=== PATIENT | female | born 1995 | race Caucasian/White ===

== ENCOUNTER 2017-02-20 05:30 | Inpatient (IN) | payer OTHER ==
[2017-02-20] MEDS ORDERED: Ondansetron INJ* 2 MG/ML VIAL IV ONE ×2 (07:30→10:10)
[2017-02-20] MEDS ORDERED: Sucralfate TAB* 1 GM PO ONE (07:30)
[2017-02-20] MEDS ORDERED: NS 0.9% 1000 ML* 1,000 ML IV ONE ×2 (07:30→11:27)
[2017-02-20] MEDS ORDERED: Pantoprazole IV* 40 MG IV ONE (07:30)
[2017-02-20 08:06] LABS: Hematocrit 49 % (35-47); Hemoglobin 16.6 g/dl (12.0-16.0); Mean Corpuscular HGB Conc 34 g/dl (31-36); Mean Corpuscular Hemoglobin 30 pg (27-31); Mean Corpuscular Volume 89 fL (80-97); Mean Platelet Volume 9 um3 (7.4-10.4); Red Blood Count 5.56 10^6/ul (4.0-5.4); Red Cell Distribution Width 16 % (10.5-15); White Blood Count 12.5 10^3/ul (3.5-10.8)
[2017-02-20 08:21] LABS: ALT 273 U/L (7-52); AST 295 U/L (13-39); Albumin 4.8 g/dL (3.2-5.2); Alkaline Phosphatase 123 U/L (34-104); Anion Gap 6 mmol/L (2-11); BUN/Creatinine Ratio 11.6 (8-20); Blood Urea Nitrogen 10 mg/dL (6-24); C Reactive Protein 10.18 mg/L (< 5.00); CO2 Carbon Dioxide 30 mmol/L (22-32); Calcium 9.6 mg/dL (8.6-10.3); Chloride 102 mmol/L (101-111); EGFR African American 109.3 (>60); Globulin 2.8 g/dL (2-4); Glucose 135 mg/dL (70-100); Lipase 17 U/L (11.0-82.0); Potassium 4.5 mmol/L (3.5-5.0); Sodium 138 mmol/L (133-145); Total Protein 7.6 g/dL (6.4-8.9)
--- NOTE | 2017-02-20 09:40 | RAD ---
HISTORY: Right upper quadrant pain. COMPARISONS: None TECHNIQUE: Multiple transverse and longitudinal ultrasound images were obtained of the right upper quadrant. FINDINGS: LIVER: The liver is normal in dimensions and echogenicity. Normal hepatic and portal venous blood flow is duplicated with color flow imaging. There is no gross intrahepatic biliary duct dilatation. GALLBLADDER AND EXTRAHEPATIC BILIARY DUCT: Within the gallbladder lumen there are multiple echogenic, some shadowing, foci. Some of these foci adherent to the nondependent portion of the gallbladder exhibiting the "ball on a wall" sign. The wall the gallbladder is not pathologically thickened measuring up to 3 mm. There is no definite pericholecystic fluid. The common bile duct measures a maximum diameter of 7 mm. There is the appearance of echogenic debris in the common bile duct. PANCREAS: The portions of the pancreas not obscured by bowel gas are normal in appearance. RIGHT KIDNEY: The right kidney is normal in size, morphology and echogenicity. AORTA AND IVC: The visualized portions are normal in appearance and not pathologically dilated. IMPRESSION: SONOGRAPHIC FINDINGS ARE COMPATIBLE WITH NONOBSTRUCTIVE CHOLELITHIASIS AND GALLBLADDER SLUDGE POSSIBLY WITH THE ADDITION OF ADENOMYOMATOSIS. THERE IS ECHOGENIC DEBRIS IN THE MILDLY DILATED COMMON BILE DUCT. IF THERE IS STRONG CLINICAL SUSPICION FOR OBSTRUCTIVE CHOLECYSTITIS FURTHER CHARACTERIZATION COULD BE MADE WITH A HIDA SCAN.
[2017-02-20] MEDS ORDERED: HYDROmorphone* 1 MG/ML 1 ML CARPUJECT IV ONE (10:10)
[2017-02-20 10:33] LABS: Urine Bacteria Absent (Absent); Urine Bilirubin Negative (Negative); Urine Glucose Negative (Negative); Urine Nitrite Negative (Negative)
[2017-02-20] MEDS ORDERED: Ondansetron INJ* 2 MG/ML VIAL IV PRN (11:27)
[2017-02-20] MEDS ORDERED: Acetaminophen TAB* 325 MG PO PRN (11:27)
--- NOTE | 2017-02-20 13:23 | ED ---
Mann Nicolas Nikita, scribed for Sulaiman Medrano MD on 02/20/17 at 0736 . Abdominal Pain/Female - HPI Summary HPI Summary: This patient is a 21 year old F presenting to ED with a chief complaint of RUQ abdominal pain since 1800 last night. The pt reports the pain kept her up all night until this morning. The pain went away for a bit, but now is back. The CC is described as intermittent contractions, waves of pain at worse, then dull pain at best (waxing and waning). The patient rates the pain 8/10 in severity. Symptoms aggravated by lying supine. Symptoms alleviated by nothing. Patient reports nausea when the pain is at its worst. Patient denies bowel symptoms, vomiting, and diarrhea. - History of Current Complaint Chief Complaint: EDAbdPain Stated Complaint: ABD PAIN Time Seen by Provider: 02/20/17 07:20 Hx Obtained From: Patient Onset/Duration: Sudden Onset - 1800 last night, Lasting Days, Still Present Timing: Intermittent Episode Lasting - waxing and waning Severity Initially: Severe Severity Currently: Severe Pain Intensity: 8 Pain Scale Used: 0-10 Numeric Location: Discrete At: RUQ Radiates: No Character: Sharp, Dull, Other: - Contractions and waves of pain Aggravating Factor(s): Other: - Lying supine Alleviating Factor(s): Nothing Associated Signs and Symptoms: Positive: Other: - Patient reports nausea when the pain is at its worst. Patient denies bowel symptoms, vomiting, and diarrhea. Allergies/Adverse Reactions: Allergies Allergy/AdvReac Type Severity Reaction Status Date / Time Amoxicillin Allergy Hives Verified 02/20/17 05:34 Azithromycin [From Zithromax] Allergy Hives Verified 02/20/17 05:34 Sulfamethoxazole Allergy Hives Verified 02/20/17 05:34 w/Trimethoprim [From Bactrim] Home Medications: Home Medications ALPRAZolam TAB* [Xanax TAB*] 0.5 mg PO DAILY PRN 02/20/17 [History Confirmed 02/28] Sertraline* [Zoloft*] 100 mg PO DAILY 02/20/17 [History Confirmed 02/20/17] PMH/Surg Hx/FS Hx/Imm Hx Endocrine/Hematology History: Denies: Hx Diabetes Cardiovascular History: Denies: Hx Coronary Artery Disease, Hx Hypertension - Immunization History Date of Tetanus Vaccine: utd Date of Influenza Vaccine: none Infectious Disease History: No Infectious Disease History: Denies: Traveled Outside the [place] in Last 30 Days - Family History Known Family History: Positive: Diabetes - Social History Alcohol Use: Occasionally Substance Use Type: Reports: Marijuana Substance Use Comment - Amount & Last Used: last month Smoking Status (MU): Light Every Day Tobacco Smoker Review of Systems Negative: Fever Positive: Abdominal Pain - RUQ, Nausea, Other - NEGATIVE: bowel symptoms. Negative: Vomiting, Diarrhea All Other Systems Reviewed And Are Negative: Yes Physical Exam Triage Information Reviewed: Yes Vital Signs On Initial Exam: Initial Vitals Temp Pulse Resp BP Pulse Ox 96.2 F 88 18 116/83 100 02/20/17 05:35 02/20/17 05:35 02/20/17 05:35 02/20/17 05:35 02/20/17 05:35 Vital Signs Reviewed: Yes Appearance: Positive: Well-Appearing, No Pain Distress Skin: Positive: Warm, Skin Color Reflects Adequate Perfusion, Dry Head/Face: Positive: Normal Head/Face Inspection Eyes: Positive: Normal ENT: Positive: Normal ENT inspection Neck: Positive: Supple, Nontender Respiratory/Lung Sounds: Positive: Clear to Auscultation, Breath Sounds Present Cardiovascular: Positive: RRR Abdomen Description: Positive: Other: - Epigastric and RUQ tenderness Bowel Sounds: Positive: Present Musculoskeletal: Positive: Normal Neurological: Positive: Normal, Sensory/Motor Intact, Alert, Oriented to Person Place, Time, CN Intact II-III Psychiatric: Positive: Affect/Mood Appropriate - Denise Coma Scale Coma Scale Total: 15 Diagnostics - Vital Signs Vital Signs Temp Pulse Resp BP Pulse Ox 02/20/17 05:35 96.2 F 88 18 116/83 100 - Laboratory Lab Results: Lab Results 02/20/17 02/20/17 02/20/17 Range/Units 07:50 07:50 07:50 WBC 12.5 H (3.5-10.8) 10^3/ul RBC 5.56 H (4.0-5.4) 10^6/ul Hgb 16.6 H (12.0-16.0) g/dl Hct 49 H (35-47) % MCV 89 (80-97) fL MCH 30 (27-31) pg MCHC 34 (31-36) g/dl RDW 16 H (10.5-15) % Plt Count 222 (150-450) 10^3/ul MPV 9 (7.4-10.4) um3 Neut % (Auto) 75.9 (38-83) % Lymph % (Auto) 15.8 L (25-47) % Vilas % (Auto) 7.6 (1-9) % Eos % (Auto) 0.6 (0-6) % Baso % (Auto) 0.1 (0-2) % Absolute Neuts (auto) 9.5 H (1.5-7.7) 10^3/ul Absolute Lymphs (auto) 2.0 (1.0-4.8) 10^3/ul Absolute Monos (auto) 0.9 H (0-0.8) 10^3/ul Absolute Eos (auto) 0.1 (0-0.6) 10^3/ul Absolute Basos (auto) 0 (0-0.2) 10^3/ul Absolute Nucleated RBC 0 10^3/ul Nucleated RBC % 0 Sodium 138 (133-145) mmol/L Potassium 4.5 (3.5-5.0) mmol/L Chloride 102 (101-111) mmol/L Carbon Dioxide 30 (22-32) mmol/L Anion Gap 6 (2-11) mmol/L BUN 10 (6-24) mg/dL Creatinine 0.86 (0.51-0.95) mg/dL Est GFR ( Amer) 109.3 (>60) Est GFR (Non-Af Amer) 85.0 (>60) BUN/Creatinine Ratio 11.6 (8-20) Glucose 135 H (70-100) mg/dL Lactic Acid 1.3 (0.5-2.0) mmol/L Calcium 9.6 (8.6-10.3) mg/dL Total Bilirubin 1.00 (0.2-1.0) mg/dL AST 295 H (13-39) U/L ALT 273 H (7-52) U/L Alkaline Phosphatase 123 H (34-104) U/L C-Reactive Protein 10.18 H (< 5.00) mg/L Total Protein 7.6 (6.4-8.9) g/dL Albumin 4.8 (3.2-5.2) g/dL Globulin 2.8 (2-4) g/dL Albumin/Globulin Ratio 1.7 (1-3) Lipase 17 (11.0-82.0) U/L Beta HCG, Quant < 0.60 mIU/mL Urine Color Urine Appearance Urine pH (5-9) Ur Specific [place] (1.010-1.030) Urine Protein (Negative) Urine Ketones (Negative) Urine Blood (Negative) Urine Nitrate (Negative) Urine Bilirubin (Negative) Urine Urobilinogen (Negative) Ur Leukocyte Esterase (Negative) Urine WBC (Auto) (Absent) Urine RBC (Auto) (Absent) Ur Squamous Epith Cells (Absent) Amorphous Crystals (Absent) Urine Bacteria (Absent) Urine Glucose (Negative) 02/20/17 Range/Units 09:57 WBC (3.5-10.8) 10^3/ul RBC (4.0-5.4) 10^6/ul Hgb (12.0-16.0) g/dl Hct (35-47) % MCV (80-97) fL MCH (27-31) pg MCHC (31-36) g/dl RDW (10.5-15) % Plt Count (150-450) 10^3/ul MPV (7.4-10.4) um3 Neut % (Auto) (38-83) % Lymph % (Auto) (25-47) % Vilas % (Auto) (1-9) % Eos % (Auto) (0-6) % Baso % (Auto) (0-2) % Absolute Neuts (auto) (1.5-7.7) 10^3/ul Absolute Lymphs (auto) (1.0-4.8) 10^3/ul Absolute Monos (auto) (0-0.8) 10^3/ul Absolute Eos (auto) (0-0.6) 10^3/ul Absolute Basos (auto) (0-0.2) 10^3/ul Absolute Nucleated RBC 10^3/ul Nucleated RBC % Sodium (133-145) mmol/L Potassium (3.5-5.0) mmol/L Chloride (101-111) mmol/L Carbon Dioxide (22-32) mmol/L Anion Gap (2-11) mmol/L BUN (6-24) mg/dL Creatinine (0.51-0.95) mg/dL Est GFR ( Amer) (>60) Est GFR (Non-Af Amer) (>60) BUN/Creatinine Ratio (8-20) Glucose (70-100) mg/dL Lactic Acid (0.5-2.0) mmol/L Calcium (8.6-10.3) mg/dL Total Bilirubin (0.2-1.0) mg/dL AST (13-39) U/L ALT (7-52) U/L Alkaline Phosphatase (34-104) U/L C-Reactive Protein (< 5.00) mg/L Total Protein (6.4-8.9) g/dL Albumin (3.2-5.2) g/dL Globulin (2-4) g/dL Albumin/Globulin Ratio (1-3) Lipase (11.0-82.0) U/L Beta HCG, Quant mIU/mL Urine Color Ava Urine Appearance Cloudy Urine pH 7.0 (5-9) Ur Specific [place] 1.023 (1.010-1.030) Urine Protein 1+(30 mg/dl) H (Negative) Urine Ketones Negative (Negative) Urine Blood Negative (Negative) Urine Nitrate Negative (Negative) Urine Bilirubin Negative (Negative) Urine Urobilinogen Negative (Negative) Ur Leukocyte Esterase 3+ H (Negative) Urine WBC (Auto) 3+(>20/hpf) H (Absent) Urine RBC (Auto) Absent (Absent) Ur Squamous Epith Cells Present H (Absent) Amorphous Crystals Present H (Absent) Urine Bacteria Absent (Absent) Urine Glucose Negative (Negative) Result Diagrams: 02/20/17 07:50 02/20/17 07:50 Lab Statement: Any lab studies that have been ordered have been reviewed, and results considered in the medical decision making process. - Ultrasound No standard instances Ultrasound Interpretation Completed By: Radiologist - Gallbladder US: SONOGRAPHIC FINDINGS ARE COMPATIBLE WITH NONOBSTRUCTIVE CHOLELITHIASIS AND GALLBLADDER SLUDGE POSSIBLY WITH THE ADDITION OF ADENOMYOMATOSIS. THERE IS ECHOGENIC DEBRIS IN THE MILDLY DILATED COMMON BILE DUCT. IF THERE IS STRONG CLINICAL SUSPICION FOR OBSTRUCTIVE CHOLECYSTITIS FURTHER CHARACTERIZATION COULD BE MADE WITH A HIDA SCAN. ED physician has reviewed this radiology report and agrees. Re-Evaluation - Re-Evaluation First Eval Re-Evaluation Time: 10:08 Comment: Discussed with pt who agrees to admission. Pt asked for pain medication. Abdominal Pain Fem Course/Dx - Course Course Of Treatment: Mr. Thomas presented with epigastric and RUQ pain. He was found to have a slight leukocytosis and elevation of his transaminases. An U/S of his gallbladder revealed sludge but no cholecystitis. Dr. Sanderson was consulted and recommended admission for further W/U. - Diagnoses Provider Diagnoses: Abdominal pain - Provider Notifications Discussed Care Of Patient With: Yomi Mora Time Discussed With Above Provider: 10:03 Instructed by Provider To: Other - Discussed with Dr. Mora about pt who recommends admission to hospitalist. Discussed with Dr. Walls at 1046 who accepts pt for admission. Discharge - Discharge Plan Condition: Stable Disposition: ADMITTED TO [facility] The documentation as recorded by the Mann hwang Nikita accurately reflects the service I personally performed and the decisions made by , Sulaiman Medrano MD.
[2017-02-20] MEDS: Morphine INJ* 2 MG/ML 1 ML CARPUJECT IV PRN ×3 (14:20→23:09)
[2017-02-20] MEDS: NS 0.9% 1000 ML* 1,000 ML IV SCH (14:21)
--- NOTE | 2017-02-20 15:07 | HP ---
CC: [facility]; Angela Valladares from [place]; Dr. Mejia; Dr. Mora * HISTORY AND PHYSICAL: DATE OF ADMISSION: 02/20/17 PRIMARY CARE PROVIDER: [facility] and Angela Valladares from [place]. CONSULTING CARPENTRY INSTRUCTOR: Dr. Mora. CONSULTING SURGEON: Dr. Mejia ATTENDING PHYSICIAN: Dr. Walls * (DICTATED BY PAYTON RAY NP) CHIEF COMPLAINT: Abdominal discomfort. HISTORY OF PRESENT ILLNESS: Ms. Thomas is a 21-year-old female transitioning to becoming male prefers to be called [facility]. The patient presented today stating that he had a significant amount of epigastric discomfort. He said he had this pain before. He states about every 3 months, he will have an episode and he gets epigastric pain, felt like a band that comes in waves across the top part of his stomach that usually gets better on its own. He states he does not believe it is associated with food. The pain does though happen sometimes after eating and he said he did try cutting out fatty foods, but this did not seem to alleviate the discomfort. He comes in today because around 6 in the morning on Wednesday, he woke up having epigastric discomfort, felt nauseated. It was his typical pain that he was accustomed to it. That went away. By 6 at night, he was feeling much better and he decided to have a gyro. After eating that, about an hour and half after he had pain again in the epigastric area in right upper quadrant described as sharp, stabbing, tearing pain that was coming and going in waves, but just would not go away. He did not sleep at all last night, so he decided to come into the ER to be evaluated because the pain was not getting any better. The patient denied having any fevers on chills. He did state that he felt nauseous once, no vomiting. He denied any diarrhea and no dysuria or frequency. He states that the pain feels better now. He came in and was evaluated. He denied having any chest pain. He states he is pretty active. He can walk up a flight of stairs with no chest pain. He was concerned because the pain was not getting any better, came into the ED and was evaluated here. It was noted that the LFTs were elevated it was noted that he had on ultrasound biliary sludge and cholelithiasis. Because of this we were asked to evaluate for admission. PAST MEDICAL HISTORY: Significant for; 1. Anxiety. 2. Depression. PAST SURGICAL HISTORY: Denied. HOME MEDICATIONS: According to his recall include; 1. Zoloft 100 mg p.o. daily. 2. Xanax 0.25 mg p.o. daily as needed for anxiety. 3. Testosterone injection 1 injection weekly. ALLERGIES TO MEDICATIONS: Include; 1. AMOXICILLIN. 2. AZITHROMYCIN. 3. BACTRIM. FAMILY HISTORY: He does state that his mother has history of gallbladder disease. She had her gallbladder out at around 22. Also, father has a history of prediabetes. SOCIAL HISTORY: He rarely drinks alcohol. The patient does occasionally smoke cigarettes 1 to 2 times a week and occasionally smokes marijuana. 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 REVIEW OF SYSTEMS: There is no documented fever. Denied any significant weight change. No double vision. No ear discharge. No rhinorrhea. No sore throat. No thyroid enlargement. Denied having any chest pain. No orthopnea or nocturnal dyspnea. There is abdominal pain from HPI. There was 1 episode of nausea, but no vomiting. No dysuria. No frequency. No seizure. No loss of consciousness or pruritus. No skin ulcerations. Review of 14 systems completed, all others negative. PHYSICAL EXAMINATION GENERAL: At this time, Mr. Thomas is a 21-year-old female becoming male patient who is sitting in the ED stretcher, does not appear to be in any acute distress. VITAL SIGNS: Blood pressure 101/60, pulse 76, respirations 18, O2 sat 98% on room air, temperature 96.2. HEENT: Head is atraumatic and normocephalic. Eyes: EOMs are intact. Sclerae anicteric and not pale. Throat: Oral mucosa appeared to be moist. No oropharyngeal erythema. NECK: Supple. LUNGS: Clear to auscultation bilaterally. No wheezes, rales, or rhonchi. HEART: Sounds S1 and S2, regular rate and rhythm. No murmurs, rubs, or gallops. ABDOMEN: Soft, flat. There was tenderness in the right upper quadrant. EXTREMITIES: Pulses 2+ throughout, able to move all 4 extremities with 5/5 strength. NEUROLOGIC: The patient is awake, alert, oriented x3. Tongue is midline. Commutator Assembler were equal. No gross focal deficits. SKIN: Grossly intact. LABORATORY DATA: The labs today revealed a WBC of 12.5, RBC of 5.56, hemoglobin of 16.6, hematocrit of 49, and platelet count of 222. Sodium is 138 , potassium is 4.5, chloride of 102, bicarbonate 30, BUN 10, creatinine 0.86, glucose 135, lactate 1.3, calcium 9.6, total bilirubin 1, AST 295, ALT 275, alk phos 123, CRP at 10. Lipase is negative. Beta hCG was negative. Urine showed 3 + leukocyte esterase, 3+ WBC, 1+ protein. There was a gallbladder ultrasound obtained, impression: Sonographic findings compatible with nonobstructive cholelithiasis, gallbladder sludge, possibility with addition of adenomyomatosis. There is echogenic debris in the mildly dilated common bile duct. If there is strong clinical suspicion for obstructive cholelithiasis further characteristics could be made with a HIDA scan. Old medical records were reviewed. ASSESSMENT AND PLAN: Mr. Thomas is a 21-year-old again female becoming male patient coming into the ER today with complaints of abdominal discomfort, on evaluation found to have elevated LFTs. In addition to this, was found to have ultrasound consistent with cholelithiasis. He will be admitted under observation status for: 1. Biliary colic. At this point, he does not appear to be obstructed as his bilirubin is normal and the amylase is normal; however, that could change tomorrow. I am concerned that he may have passed a stone, in light of the pain that he was experiencing. The plan is to get GI and Surgery involved as the patient may need a cholecystectomy. We will have GI evaluate. We may need to do an MRCP, but again I will defer that to GI's recommendation. He also may need an ERCP, but again we will repeat labs in the morning. The patient was placed on clear liquid diet, IV fluids. I am holding on antibiotic. I know if he had a little bit of white count that could just be a leukemoid reaction. He does appear to be pretty dehydrated. If he does spike a fever, I will put him on antibiotics, bit at this point there were no signs of cholecystitis on the ultrasound. 2. History of depression and anxiety. Continue meds as prescribed. 3. Hormonal therapy. Again, I will hold off the testosterone now until the acute illness is over. 4. DVT prophylaxis. He will be placed on SCDs. 5. Code status. Full code. 6. Fluids, electrolytes, and nutrition. Clear liquid diet. TIME SPENT: Time spent on the admission was 60 minutes, greater than half the time was spent [id number] with the patient obtaining my history of physical; the other half time was spent going over the plan of care with the patient and implementing plan of care. I did discuss the plan of care with my attending, Dr. Walls. PAYTON RAY, LEAD TECHNICAL ARCHITECT [id number]/[facility] #: [id number] EDIS
[2017-02-20] MEDS ORDERED: Influenza VAC *QUAD* 2017-18* 0.5 ML SYRINGE IM ONE (17:00)
--- NOTE | 2017-02-20 17:37 | CONS ---
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 HISTORY: This is a 21-year-old transgender (female to male, on one year of weekly testosterone). The patient comes in complaining of upper abdominal pain. Abdominal pain began in earnest over the last few days and he presented to the ER this morning, was found to have a slightly elevated white count and elevated LFTs. She recalls abdominal pains at wide intervals in high school and having a gallbladder ultrasound that was reportedly negative, ordered by her family physician. Over the last couple of weeks, there has been increasing number of these pains, usually brief, but yesterday it lasted longer and just would not go away. There has been no vomiting, fever or change in her urine. PAST MEDICAL HISTORY: Testosterone injections weekly, beginning a year ago, obtained at [facility] and self administered. No surgery has been done consistent with this plan. MEDICATIONS: Testosterone, Sertraline 100, Alprazolam 0.5. SOCIAL HISTORY: She (still registered as such through admissions) is from [place], a sophomore at [employer], studying film. Her mother works with the [employer], in logistics, and is driving up today to be with her. Her father is a municipal coke crane operator. REVIEW OF SYSTEMS: No history of syncope, seizure, arrhythmias, heart abnormalities, hemoptysis, TB, hepatitis, jaundice, renal stones or bowel habit abnormalities. PHYSICAL EXAMINATION: He is a substantially overweight young, phenotypically male patient, with some fry growth, some breast development, and extensive abdominal wall hair growth. There is no adenopathy. There is no icterus. Lungs are clear. Heart sounds are regular. The abdomen is symmetric with normal bowel sounds, soft, and without any tenderness. Rectal deferred. The skilled nursing facility counselor was in attendance. Extremities are normal. DIAGNOSTIC STUDIES/LAB DATA: CBC shows hemoglobin 16.6, hematocrit 49, white count 12.5. ALT 273, AST 295, bilirubin 1.00, alkaline phosphatase 123. IMPRESSION: This 21-year-old [id number] transgender student has upper abdominal pain, probably explained by the gallstones seen on ultrasound. Whether they will seize up and cause cholecystitis or cholangitis or just biliary colic is uncertain at the moment. The baseline LFTs are not available, and with the obesity and testosterone treatment a certain amount of transaminase abnormality and alkaline phosphatase rise could from a fatty liver or the exogenous testosterone effect. A surgery consult is indicated. Depending on the time course of this, an MRCP maybe indicated. [id number]/[facility] #: [id number] [facility]
[2017-02-21] MEDS: Morphine INJ* 2 MG/ML 1 ML CARPUJECT IV PRN ×4 (03:10→17:06)
[2017-02-21] MEDS: NS 0.9% 1000 ML* 1,000 ML IV SCH ×2 (03:10→13:19)
[2017-02-21 04:58] LABS: Hematocrit 42 % (35-47); Hemoglobin 14.2 g/dl (12.0-16.0); Mean Corpuscular HGB Conc 34 g/dl (31-36); Mean Corpuscular Hemoglobin 30 pg (27-31); Mean Corpuscular Volume 90 fL (80-97); Mean Platelet Volume 9 um3 (7.4-10.4); Red Blood Count 4.68 10^6/ul (4.0-5.4); Red Cell Distribution Width 16 % (10.5-15); White Blood Count 9.1 10^3/ul (3.5-10.8)
[2017-02-21 05:11] LABS: Albumin 3.4 g/dL (3.2-5.2); BUN/Creatinine Ratio 8.6 (8-20); Calcium 8.4 mg/dL (8.6-10.3); EGFR African American 117.1 (>60); EGFR Non-African American 91.1 (>60); Globulin 2.4 g/dL (2-4); Potassium 4.2 mmol/L (3.5-5.0); Total Bilirubin 1.6 mg/dL (0.2-1.0); Total Protein 5.8 g/dL (6.4-8.9)
--- NOTE | 2017-02-21 08:31 | PN ---
Subjective Date of Service: 02/21/17 Interval History: This is a 21 yo female transitioning to male with h/o anxiety/depression who presented with c/o RUQ pain and elevated transaminases. Admitted with concern for biliary colic. GI suggested MRCP if sx's persist as US showed non- obstructive cholelithiasis. Surgery consult is pending. This am, patient reports some mild RUQ pain. No n/v. He has had a few sips of clear liquids, no additional oral intake. Objective Active Medications: Acetaminophen (Tylenol Tab*) 650 mg PO Q6H PRN PRN Reason: FEVER/PAIN Alprazolam (Xanax Tab*) 0.5 mg PO DAILY PRN PRN Reason: ANXIETY Sodium Chloride (Ns 0.9% 1000 Ml*) 1,000 mls @ 100 mls/hr IV PER RATE [facility] Last Admin: 02/21/17 03:10 Dose: 100 mls/hr Influenza Virus Vaccine (Fluarix *Quad* *) 0.5 ml IM .ONCE ONE Stop: 02/21/17 09:01 Morphine Sulfate (Morphine Inj (Syringe)*) 2 mg IV Q4H PRN PRN Reason: PAIN - MILD Last Admin: 02/21/17 03:10 Dose: 2 mg Ondansetron HCl (Zofran Inj*) 4 mg IV Q6H PRN PRN Reason: NAUSEA Last Admin: 02/20/17 17:57 Dose: 4 mg Sertraline HCl (Zoloft*) 100 mg PO DAILY [facility] Vital Signs: Temp Pulse Resp BP Pulse Ox 97.7 F 69 14 116/65 100 02/21/17 02:35 02/21/17 02:35 02/21/17 04:10 02/21/17 02:35 02/21/17 02:35 Oxygen Devices in Use Now: None Appearance: Mildly ill appearing young male in NAD Respiratory: Symmetrical Chest Expansion and Respiratory Effort, Clear to Auscultation Cardiovascular: NL Sounds; No Murmurs; No JVD, RRR Abdominal: - - abd soft, TTP RUQ Extremities: No Edema Skin: No Rash or Ulcers Neurological: Alert and Oriented x 3 Result Diagrams: 02/21/17 04:48 02/21/17 04:48 Additional Lab and Data: Laboratory Tests 02/21/17 04:48 Total Bilirubin 1.60 H AST 266 H ALT 441 H Alkaline Phosphatase 135 H Diagnostic Imaging: GB US - cholelithiasis with GB sludge, CBD 7mm with debris present Assess/Plan/Problems-Billing Assessment: This is a 21 yo female transitioning to male on testosterone supplementation who presented with c/o RUQ abd pain and elevated transaminases. - Patient Problems (1) Biliary colic Comment: Abd pain improved but increasing transaminases and mild elevation in Tbili suggestive of biliary pathology Appreciate GI input, pending surgery recommendations No evidence of acute cholecystitis Maintain clear liquids at this time (2) Transaminitis Comment: Likely due to biliary pathology (3) Transgender Comment: Female transitioning to male On testosterone supplementation (4) Anxiety and depression Comment: Stable, cont home meds (5) Full code status (6) DVT prophylaxis Comment: Low risk SCDs Status and Disposition: Observation status for now, dispo pending surgery consult
[2017-02-21] MEDS: Sertraline* 100 MG TAB PO SCH (08:53)
[2017-02-21] MEDS ORDERED: Influenza VAC *QUAD* 2017-18* 0.5 ML SYRINGE IM ONE (09:00)
--- NOTE | 2017-02-21 09:57 | PN ---
Progress Note - Progress Note Date of Service: 02/21/17 Note: Surgery Damaso Thomas reports he is still having pain and that it is persistent, but managed with morphine. Vital Signs 02/20/17 02/20/17 02/20/17 10:00 10:17 10:30 Temperature Pulse Rate 81 73 Respiratory 18 Rate Blood Pressure 107/84 101/54 (mmHg) O2 Sat by Pulse 99 95 Oximetry 02/20/17 02/20/17 02/20/17 11:00 11:27 11:30 Temperature 98.3 F Pulse Rate 77 72 76 Respiratory 18 Rate Blood Pressure 101/60 120/74 (mmHg) O2 Sat by Pulse 93 100 98 Oximetry 02/20/17 02/20/17 02/20/17 12:00 12:02 12:04 Temperature 98.3 F Pulse Rate 76 81 72 Respiratory 18 Rate Blood Pressure 104/56 120/74 (mmHg) O2 Sat by Pulse 97 97 100 Oximetry 02/20/17 02/20/17 02/20/17 12:28 12:44 14:20 Temperature 98.2 F 98.3 F Pulse Rate 67 72 Respiratory 16 18 16 Rate Blood Pressure 103/73 120/74 (mmHg) O2 Sat by Pulse 100 Oximetry 02/20/17 02/20/17 02/20/17 15:20 16:25 18:33 Temperature 97.6 F Pulse Rate 80 Respiratory 18 21 16 Rate Blood Pressure 98/69 (mmHg) O2 Sat by Pulse 100 Oximetry 02/20/17 02/20/17 02/20/17 19:33 20:22 22:47 Temperature 98.2 F 98.1 F Pulse Rate 69 72 Respiratory 18 20 18 Rate Blood Pressure 102/59 122/59 (mmHg) O2 Sat by Pulse 99 98 Oximetry 02/20/17 02/21/17 02/21/17 23:09 00:09 02:35 Temperature 97.7 F Pulse Rate 69 Respiratory 18 16 16 Rate Blood Pressure 116/65 (mmHg) O2 Sat by Pulse 100 Oximetry 02/21/17 02/21/17 02/21/17 03:10 04:10 07:37 Temperature 98.2 F Pulse Rate 66 Respiratory 16 14 20 Rate Blood Pressure 115/76 (mmHg) O2 Sat by Pulse 100 Oximetry 02/21/17 09:04 Temperature Pulse Rate Respiratory 16 Rate Blood Pressure (mmHg) O2 Sat by Pulse Oximetry Abd: good BS, soft, tender in RUQ without guarding, rebound. Intake & Output 02/20/17 02/21/17 02/21/17 22:59 06:59 14:59 Intake Total 910 1049 Output Total 0 Balance 910 1049 Intake: IV Fluids 110 1049 NS (0.9%) 100 300 Oral 800 0 Output: Urine 0 Other: # Bowel Movements 0 # Voids 2 Laboratory Results - last 24 hr 02/20/17 02/21/17 02/21/17 09:57 04:48 04:48 WBC 9.1 RBC 4.68 Hgb 14.2 Hct 42 MCV 90 MCH 30 MCHC 34 RDW 16 H Plt Count 180 MPV 9 Neut % (Auto) 52.0 Lymph % (Auto) 38.7 Ritchie % (Auto) 7.2 Eos % (Auto) 1.9 Baso % (Auto) 0.2 Absolute Neuts (auto) 4.7 Absolute Lymphs (auto) 3.5 Absolute Monos (auto) 0.6 Absolute Eos (auto) 0.2 Absolute Basos (auto) 0 Absolute Nucleated RBC 0.01 Nucleated RBC % 0.1 INR (Anticoag Therapy) 0.98 Sodium Potassium Chloride Carbon Dioxide Anion Gap BUN Creatinine Est GFR ( Amer) Est GFR (Non-Af Amer) BUN/Creatinine Ratio Glucose Calcium Total Bilirubin AST ALT Alkaline Phosphatase Total Protein Albumin Globulin Albumin/Globulin Ratio Lipase Urine Color Ava Urine Appearance Cloudy Urine pH 7.0 Ur Specific [place] 1.023 Urine Protein 1+(30 mg/dl) H Urine Ketones Negative Urine Blood Negative Urine Nitrate Negative Urine Bilirubin Negative Urine Urobilinogen Negative Ur Leukocyte Esterase 3+ H Urine WBC (Auto) 3+(>20/hpf) H Urine RBC (Auto) Absent Ur Squamous Epith Cells Present H Amorphous Crystals Present H Urine Bacteria Absent Urine Glucose Negative 02/21/17 04:48 WBC RBC Hgb Hct MCV MCH MCHC RDW Plt Count MPV Neut % (Auto) Lymph % (Auto) Ritchie % (Auto) Eos % (Auto) Baso % (Auto) Absolute Neuts (auto) Absolute Lymphs (auto) Absolute Monos (auto) Absolute Eos (auto) Absolute Basos (auto) Absolute Nucleated RBC Nucleated RBC % INR (Anticoag Therapy) Sodium 139 Potassium 4.2 Chloride 107 Carbon Dioxide 28 Anion Gap 4 BUN 7 Creatinine 0.81 Est GFR ( Amer) 117.1 Est GFR (Non-Af Amer) 91.1 BUN/Creatinine Ratio 8.6 Glucose 90 Calcium 8.4 L Total Bilirubin 1.60 H AST 266 H ALT 441 H Alkaline Phosphatase 135 H Total Protein 5.8 L Albumin 3.4 Globulin 2.4 Albumin/Globulin Ratio 1.4 Lipase 17 Urine Color Urine Appearance Urine pH Ur Specific [place] Urine Protein Urine Ketones Urine Blood Urine Nitrate Urine Bilirubin Urine Urobilinogen Ur Leukocyte Esterase Urine WBC (Auto) Urine RBC (Auto) Ur Squamous Epith Cells Amorphous Crystals Urine Bacteria Urine Glucose A/P: Slight increase in LFTs may represent stone passing, or associated inflammation. Agree with re-check labs in AM and decide whether to have MRCP or cholecystectomy.
[2017-02-21] MEDS: ALPRAZolam TAB* 0.5 MG PO PRN (19:51)
[2017-02-22] MEDS: NS 0.9% 1000 ML* 1,000 ML IV SCH ×2 (00:25→10:24)
[2017-02-22] MEDS: Morphine INJ* 4 MG/ML 1 ML CARPUJECT IV PRN ×3 (02:04→14:26)
[2017-02-22 06:39] LABS: Hematocrit 44 % (35-47); Hemoglobin 14.9 g/dl (12.0-16.0); Mean Corpuscular HGB Conc 34 g/dl (31-36); Mean Corpuscular Hemoglobin 30 pg (27-31); Mean Corpuscular Volume 89 fL (80-97); Mean Platelet Volume 9 um3 (7.4-10.4); Red Blood Count 4.95 10^6/ul (4.0-5.4); Red Cell Distribution Width 16 % (10.5-15); White Blood Count 8.5 10^3/ul (3.5-10.8)
[2017-02-22 06:50] LABS: Albumin 3.7 g/dL (3.2-5.2); BUN/Creatinine Ratio 7.7 (8-20); Calcium 8.9 mg/dL (8.6-10.3); EGFR African American 122.4 (>60); EGFR Non-African American 95.1 (>60); Globulin 2.4 g/dL (2-4); Potassium 3.8 mmol/L (3.5-5.0); Total Bilirubin 0.8 mg/dL (0.2-1.0); Total Protein 6.1 g/dL (6.4-8.9)
[2017-02-22] MEDS: Sertraline* 100 MG TAB PO SCH (09:25)
[2017-02-22] MEDS: ALPRAZolam TAB* 0.5 MG PO PRN (10:22)
--- NOTE | 2017-02-22 12:05 | PN ---
Subjective Date of Service: 02/22/17 Interval History: Patient reports continued pain intermittently. No n/v overnight. No new complaints. Objective Active Medications: Acetaminophen (Tylenol Tab*) 650 mg PO Q6H PRN PRN Reason: FEVER/PAIN Last Admin: 02/21/17 19:56 Dose: 650 mg Alprazolam (Xanax Tab*) 0.5 mg PO DAILY PRN PRN Reason: ANXIETY Last Admin: 02/22/17 10:22 Dose: 0.5 mg Sodium Chloride (Ns 0.9% 1000 Ml*) 1,000 mls @ 100 mls/hr IV PER RATE MADY Last Admin: 02/22/17 10:24 Dose: 100 mls/hr Morphine Sulfate (Morphine Inj (Syringe)*) 2 mg IV Q4H PRN PRN Reason: PAIN - MILD Last Admin: 02/22/17 05:57 Dose: 2 mg Ondansetron HCl (Zofran Inj*) 4 mg IV Q6H PRN PRN Reason: NAUSEA Last Admin: 02/20/17 17:57 Dose: 4 mg Sertraline HCl (Zoloft*) 100 mg PO DAILY [facility] Last Admin: 02/22/17 09:25 Dose: 100 mg Vital Signs: Temp Pulse Resp BP Pulse Ox 97.7 F 71 18 128/77 99 02/22/17 07:27 02/22/17 07:27 02/22/17 10:22 02/22/17 07:27 02/22/17 08:26 Oxygen Devices in Use Now: None Appearance: Fatigued appearing young male in NAD Respiratory: Symmetrical Chest Expansion and Respiratory Effort, Clear to Auscultation Cardiovascular: NL Sounds; No Murmurs; No JVD, RRR Abdominal: - - soft, TTP RUQ Extremities: No Edema Skin: No Rash or Ulcers Neurological: Alert and Oriented x 3 Result Diagrams: 02/22/17 06:25 02/22/17 06:25 Additional Lab and Data: Laboratory Tests 02/21/17 04:48 Total Bilirubin 1.60 H AST 266 H ALT 441 H Alkaline Phosphatase 135 H Laboratory Tests 02/22/17 06:25 Total Bilirubin 0.80 AST 105 H ALT 337 H Alkaline Phosphatase 132 H Diagnostic Imaging: GB US - cholelithiasis with GB sludge, CBD 7mm with debris present Assess/Plan/Problems-Billing Assessment: This is a 21 yo female transitioning to male on testosterone supplementation who presented with c/o RUQ abd pain and elevated transaminases. - Patient Problems (1) Biliary colic Comment: Some persistent pain, but improvement in Tbili and transaminases this am Discussed with GI and surgery Plan to proceed with cholecystectomy today No evidence of acute cholecystitis (2) Transaminitis Comment: Likely due to biliary pathology Improving (3) Transgender Comment: Female transitioning to male On testosterone supplementation (4) Anxiety and depression Comment: Stable, cont home meds (5) Full code status (6) DVT prophylaxis Comment: Low risk SCDs Status and Disposition: Inpatient. Pending cholecystectomy. Discharge later today or tomorrow am depending on timing of surgery
[2017-02-22] MEDS ORDERED: Bupivacaine 0.25% SDV* 30 ML ONE (15:04)
[2017-02-22] MEDS ORDERED: Vancomycin(*) 1,250 MG IV x ONCE IVPB ONE ×2 (16:30)
[2017-02-22] MEDS ORDERED: Lidocaine 1% INJ* 10 MG/ML 30 ML SDV ONE (17:55)
[2017-02-22] MEDS ORDERED: Succinylcholine* 20 MG/ML 10 ML VIAL ONE (17:55)
[2017-02-22] MEDS ORDERED: Rocuronium* 10 MG/ML VIAL ONE (17:55)
[2017-02-22] MEDS ORDERED: Midazolam* 1 MG/ML 2 ML VIAL (2 MG) ONE (17:56)
[2017-02-22] MEDS ORDERED: fentaNYL* 50 MCG/ML 2 ML VIAL (100 MCG VIAL) ONE (17:56)
[2017-02-22] MEDS ORDERED: KETAMINE HCL* 50 MG/ML 10 ML VIAL ONE (17:56)
[2017-02-22] MEDS ORDERED: Phenylephrine IV* 40 MCG/ML 10 ML SYRINGE ONE (18:31)
[2017-02-22] MEDS ORDERED: Clindamycin 900 MG IVPREMIX(* 900 MG/50 ML SDV IV ONE ×2 (18:41→20:13)
[2017-02-22] MEDS ORDERED: Iohexol 180 (CONTRAST) 10 ML SDV IV ONE (19:00)
[2017-02-22] MEDS ORDERED: Glycopyrrolate IV* 0.2 MG/ML 1 ML VIAL ONE (19:06)
[2017-02-22] MEDS ORDERED: Ketorolac INJ* 30 MG/ML 1 ML VIAL ONE (19:06)
[2017-02-22] MEDS ORDERED: Propofol* 10 MG/ML 20 ML BTL IV PUSH ONE (19:06)
[2017-02-22] MEDS ORDERED: Ondansetron INJ* 2 MG/ML VIAL ONE (19:06)
[2017-02-22] MEDS ORDERED: Neostigmine Methylsulfate* 2 MG/2 ML SYRINGE ONE (19:06)
[2017-02-22] MEDS ORDERED: Dexamethasone IV* 4 MG/ML 1 ML (4 MG) ONE (19:06)
[2017-02-22] MEDS ORDERED: Glucagon* 1 MG VIAL ONE (19:25)
[2017-02-22] MEDS ORDERED: fentaNYL* 50 MCG/ML 2 ML VIAL (100 MCG VIAL) IV PRN (19:45)
[2017-02-22] MEDS ORDERED: DiMENhydriNATE IV* 50 MG/ML VIAL IV PUSH PRN (19:45)
[2017-02-22] MEDS ORDERED: HYDROmorphone* 1 MG/ML 1 ML CARPUJECT IV PRN (19:45)
--- NOTE | 2017-02-22 20:11 | PN ---
Progress Note - Progress Note Date of Service: 02/22/17 Note: Brief Operative Note: Pre-op Dx: acute cholecystitis; possible CBD obstruction Postop Dx: same; plus obstructed common bile duct Procedure: laparoscopic cholecystectomy; cholangiogram Anesthesia: GET Surgeon: Peggy Asst: CAYDEN Sanderson EBL: < 50 ml Fluids: 900 ml RL Drains: 1 DUONG Specimen: gallbladder Findings: subacutely inflamed gallbladder; cholangiogram: apparent CBD obstruction
[2017-02-22] MEDS ORDERED: HYDROcodone/ACETAMIN 5-325 MG* 1 TAB PO PRN ×2 (20:15→20:16)
--- NOTE | 2017-02-22 20:26 | RAD ---
INDICATION: Operative angiogram COMPARISON: None FINDINGS: 55 seconds of fluoroscopy were provided for the digital department. Fluoroscopic spot imaging of the abdomen were obtained for operative control and show nondilated intra and extrahepatic ducts. Initial images show a small filling defect in the common duct which is not confirmed on later images. This may represent an air bubble. CPT II Codes: 6045F (fluoro time doc)
[2017-02-23] MEDS: Morphine INJ* 4 MG/ML 1 ML CARPUJECT IV PRN ×4 (01:24→19:48)
[2017-02-23] MEDS: NS 0.9% 1000 ML* 1,000 ML IV SCH ×2 (03:38→13:30)
[2017-02-23 06:17] LABS: Direct Bilirubin 0.3 mg/dL (0.03-0.18); Indirect Bilirubin 0.7 mg/dL (0.3-1.0)
[2017-02-23] MEDS: Sertraline* 100 MG TAB PO SCH (09:19)
--- NOTE | 2017-02-23 09:38 | PN ---
Subjective Date of Service: 02/23/17 Interval History: Patient is having persistent pain overnight and this am. He is s/p cholecystectomy but intraoperative cholangiogram demonstrated possible CBD stone. No n/v. Objective Active Medications: Acetaminophen (Tylenol Tab*) 650 mg PO Q6H PRN PRN Reason: FEVER/PAIN Last Admin: 02/21/17 19:56 Dose: 650 mg Hydrocodone Bitart/Acetaminophen ([place] 5-325 Tab*) 1 tab PO Q4H PRN PRN Reason: PAIN - MILD TO MODERATE Hydrocodone Bitart/Acetaminophen ([place] 5-325 Tab*) 2 tab PO Q4H PRN PRN Reason: PAIN - MODERATE TO SEVERE Alprazolam (Xanax Tab*) 0.5 mg PO DAILY PRN PRN Reason: ANXIETY Last Admin: 02/22/17 10:22 Dose: 0.5 mg Sodium Chloride (Ns 0.9% 1000 Ml*) 1,000 mls @ 100 mls/hr IV PER RATE [facility] Last Admin: 02/23/17 03:38 Dose: 100 mls/hr Morphine Sulfate (Morphine Inj (Syringe)*) 2 mg IV Q2H PRN PRN Reason: PAIN - MODERATE TO SEVERE Last Admin: 02/23/17 09:18 Dose: 2 mg Ondansetron HCl (Zofran Inj*) 4 mg IV Q6H PRN PRN Reason: NAUSEA Last Admin: 02/20/17 17:57 Dose: 4 mg Sertraline HCl (Zoloft*) 100 mg PO DAILY [facility] Last Admin: 02/23/17 09:19 Dose: 100 mg Vital Signs: Temp Pulse Resp BP Pulse Ox 98.2 F 69 18 111/53 96 02/23/17 03:48 02/23/17 03:48 02/23/17 09:18 02/23/17 03:48 02/23/17 03:48 Oxygen Devices in Use Now: None Appearance: Patient is frustrated and mildly anxious but in NAD. Accompanied by mother and father Respiratory: Symmetrical Chest Expansion and Respiratory Effort, Clear to Auscultation Cardiovascular: NL Sounds; No Murmurs; No JVD, RRR Abdominal: - - soft, incision sites intact without drainage, DUONG in place Extremities: No Edema Skin: No Rash or Ulcers Neurological: Alert and Oriented x 3 Result Diagrams: 02/22/17 06:25 02/22/17 06:25 Additional Lab and Data: Laboratory Tests 02/21/17 04:48 Total Bilirubin 1.60 H AST 266 H ALT 441 H Alkaline Phosphatase 135 H Laboratory Tests 02/22/17 06:25 Total Bilirubin 0.80 AST 105 H ALT 337 H Alkaline Phosphatase 132 H Laboratory Tests 02/23/17 05:16 Total Bilirubin 1.00 AST 131 H ALT 349 H Alkaline Phosphatase 184 H Diagnostic Imaging: GB US - cholelithiasis with GB sludge, CBD 7mm with debris present Intraoperataive cholangiogram - possible CBD stone Assess/Plan/Problems-Billing Assessment: This is a 21 yo female transitioning to male on testosterone supplementation who presented with c/o RUQ abd pain and elevated transaminases. - Patient Problems (1) Biliary colic Comment: Now s/p cholecystectomy Intraop changiogram shows possible CBD stone Pending ERCP (2) Transaminitis Comment: Secondary to biliary obstruction (3) Transgender Comment: Female transitioning to male On testosterone supplementation (4) Anxiety and depression Comment: Stable, cont home meds (5) Full code status (6) DVT prophylaxis Comment: Low risk SCDs Status and Disposition: Inpatient. Pending ERCP.
[2017-02-23] MEDS: ALPRAZolam TAB* 0.5 MG PO PRN (10:52)
--- NOTE | 2017-02-23 12:57 | OP ---
DATE OF OPERATION: 02/22/17 - ROOM #421 DATE OF : [birth year] SURGEON: David Woods MD. DUPLEX TRIMMER: CAYDEN Gunn. ANESTHESIOLOGIST: Dr. Geoff Miner. ANESTHESIA: General with local. PRE-OP DIAGNOSIS: Cholelithiasis and right upper quadrant abdominal pain. POST-OP DIAGNOSES: 1. Cholelithiasis and right upper quadrant abdominal pain. 2. Possible common bile duct stone. OPERATIVE PROCEDURE: Laparoscopic cholecystectomy with cholangiogram. ESTIMATED BLOOD LOSS: Minimal. WOUND CLASSIFICATION: III. COMPLICATIONS: None. DRAINS: A #7 DUONG drain placed in the right upper quadrant. SPECIMENS: Gallbladder which contained gallstones. FINDINGS: The gallbladder was mildly inflamed and the cystic duct was noted to be of markedly larger caliber than expected and a cholangiogram was performed. This showed some mild dilation of the common hepatic and common bile duct with what appeared to be a filling defect in the distal common bile duct without flow of contrast into the duodenum even after giving 1 mg of glucagon. BRIEF HISTORY: Erica Thomas is a 21-year-old patient who has had intermittent problems with epigastric right upper quadrant abdominal discomfort over the past few years and has worsened recently. Gallbladder workup in the past had been unremarkable. He presented to the emergency room with a more persistent discomfort and was admitted. She was noted to have some mild elevation of liver transaminases and total bilirubin, and had an ultrasound which showed some gallstones, mild gallbladder wall thickening with some concern for a mildly dilated common bile duct as well as perhaps sludge and/or debris in the common bile duct. Her liver transaminases, bilirubin have trended down and she did not undergo further workup after GI consultation for this and at this point she is now being taken to the operating room for laparoscopic cholecystectomy with possible cholangiogram. The procedure was discussed with the patient and her parents and the risks but not limited to bleeding, infection, intraabdominal abscess formation, injury to peritoneal and retroperitoneal structures, possibly an open procedure, bile duct injury requiring further reconstruction, the risks of general anesthesia and deep vein thrombosis were all explained. DESCRIPTION OF PROCEDURE: Written informed consent was obtained, the abdomen was marked with indelible ink and preoperative antibiotics were administered. The patient was taken to the operating room and placed in the supine position. Sequential compression devices and a warming blanket were applied. General anesthesia was administered. The abdomen was prepped and draped in the usual sterile fashion. Small transverse incision was made just above the umbilicus in the midline and the peritoneal cavity was under direct vision. A 12-mm blunt port was inserted. The abdomen was insufflated to 15 mmHg. An 11-mm epigastric port was placed and two 5-mm ports were placed on the right side of the abdominal wall. The gallbladder was identified. It was somewhat distended and difficult to grasp and some slight characteristic of acute cholecystitis and some mild thickening of the wall and edema. I did use an 18-gauge needle to drain about 15 cc of green dark bile allowing us to grasp the gallbladder for maneuverability, however. Gallbladder was then elevated off the liver bed and with care the edematous peritoneum along the medial and lateral aspects of the infundibular area were then taken down to expose the infundibulum. I was able to identify the cystic duct as it entered the gallbladder and likewise, the cystic artery as it entered the gallbladder. I took a significant portion of the inferior part of the gallbladder off the liver bed using a critical view technique to assure myself of these two structures. At this point, it was evident that the cystic duct was of much larger caliber than would be expected. A cholangiogram was then performed through the cystic duct with a 6-[place] ureteral catheter. This showed a dilated cystic duct into a mildly dilated common bile and common hepatic duct. On initial appearance, there was some debris in the distal common duct; however, with further contrast injection, this was overshadowed by the contrast with what appeared to be a filling defect in the distal common bile duct and there was no noted flow into the duodenum after multiple flushings with saline as well as contrast. In addition, 1 mg of glucagon was given intravenously. We waited several minutes and once again performed a cholangiogram but there was no change. With this in mind, the catheter was then removed. Due to the larger caliber of the cystic duct, this was divided with a EndoGIA delgadillo load of a 30 mm stapler. The cystic artery was doubly clipped and divided. The gallbladder was removed off the liver bed without difficulty and placed in an EndoCatch bag and brought out through the umbilical incision. Hemostasis of the liver bed was achieved. In light of the fact that there may be a bile duct obstruction, a #7-[place]aur[place] DUONG drain was then placed in the right upper quadrant and brought out through the right lateral abdominal wall port site. Liver bed was then irrigated once again and hemostasis was assured. All ports were removed under direct vision of the camera. The umbilical fascia was closed with interrupted 0 Polysorb suture. The skin at all 3 incisions was approximated with subcuticular 4-0 Polysorb suture. Steri-Strips were applied. The patient tolerated the procedure well and was taken to the recovery room in stable condition. [id number]/[facility] #: [id number] [facility] SYSTEM[facility]el
[2017-02-23] MEDS ORDERED: Midazolam* 1 MG/ML 5 ML VIAL (5 MG) ONE (15:53)
[2017-02-23] MEDS ORDERED: fentaNYL* 50 MCG/ML 2 ML VIAL (100 MCG VIAL) ONE ×2 (15:56→17:03)
[2017-02-23] MEDS ORDERED: Propofol* 10 MG/ML 20 ML BTL IV PUSH ONE (15:56)
[2017-02-23] MEDS ORDERED: Atracurium* 10 MG/ML 10 ML VIAL ONE (15:57)
[2017-02-23] MEDS ORDERED: Levofloxacin 500 MG IVPREMIX(* 500 MG/100 ML BAG IVPB ONE (15:57)
[2017-02-23] MEDS ORDERED: Dexamethasone IV* 4 MG/ML 1 ML (4 MG) ONE (16:31)
[2017-02-23] MEDS ORDERED: fentaNYL* 50 MCG/ML 5 ML VIAL (250 MCG VIAL) ONE (17:03)
--- NOTE | 2017-02-23 17:04 | PN ---
Progress Note - Progress Note Date of Service: 02/23/17 SOAP: Subjective: Patient initially seen at 0830 this morning. Incisional pain is well controlled. No N/V Objective: Temp Pulse Resp BP Pulse Ox 98.2 F 73 16 106/50 97 02/23/17 14:58 02/23/17 14:58 02/23/17 14:58 02/23/17 14:58 02/23/17 14:58 PEX: Comfortable Abd is soft and non-distended. Bowel sounds are present. DUONG in place with SG drainage Assessment: POD#1 s/p lap choly Plan: Will discuss with Dr. Mora findings of operative cholangiogram-possible filling defect in CBD and may need ERCP Discussed results with patient and his family. NPO for now. IVF.
[2017-02-23] MEDS ORDERED: oxyCODONE TAB* 5 MG TAB PO PRN (17:28)
[2017-02-23] MEDS ORDERED: HYDROmorphone* 1 MG/ML 1 ML CARPUJECT IV PRN (17:28)
[2017-02-23] MEDS ORDERED: Ondansetron INJ* 2 MG/ML VIAL IV PRN (17:28)
[2017-02-23] MEDS ORDERED: DiMENhydriNATE IV* 50 MG/ML VIAL IV PUSH PRN (17:28)
[2017-02-23] MEDS ORDERED: fentaNYL* 50 MCG/ML 2 ML VIAL (100 MCG VIAL) IV PRN (17:28)
--- NOTE | 2017-02-23 18:10 | RAD ---
INDICATION: The common bile duct stone COMPARISON: Cholangiogram February 22, 2017 FINDINGS: 2 minutes and 47 seconds seconds of fluoroscopy were provided for the gastroneurology department. Fluoroscopic spot imaging of the abdomen were obtained for operative control. CPT II Codes: 6045F (fluoro time doc)
[2017-02-24] MEDS: Morphine INJ* 4 MG/ML 1 ML CARPUJECT IV PRN ×5 (00:58→21:22)
[2017-02-24] MEDS: NS 0.9% 1000 ML* 1,000 ML IV SCH ×4 (01:01→21:22)
[2017-02-24] MEDS: Sertraline* 100 MG TAB PO SCH (08:37)
[2017-02-24] MEDS ORDERED: Simethicone CHEW TAB* 80 MG PO PRN (09:12)
[2017-02-24 09:51] LABS: Hematocrit 44 % (35-47); Hemoglobin 14.7 g/dl (12.0-16.0); Mean Corpuscular HGB Conc 34 g/dl (31-36); Mean Corpuscular Hemoglobin 30 pg (27-31); Mean Corpuscular Volume 89 fL (80-97); Mean Platelet Volume 8 um3 (7.4-10.4); Red Blood Count 4.92 10^6/ul (4.0-5.4); Red Cell Distribution Width 16 % (10.5-15); White Blood Count 14.5 10^3/ul (3.5-10.8)
--- NOTE | 2017-02-24 09:57 | PRO ---
DATE: 02/23/17 - ROOM #421 REFERRING PHYSICIAN: Faina Walls DO; David Woods MD * PROCEDURE: ERCP and sphincterotomy with balloon extraction, common bile duct stone. 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 The bilirubin went down and therefore cholecystectomy was done yesterday. There has been just as much, if not more, pain since then and the bilirubin has slightly increased from 0.8 to 1 , but ALT has continued to be up in the several hundred range. There has been no fever. Intraoperative cholangiogram showed filling defect in the common duct, quite consistent with a stone. Informed consent was obtained in initial conversation with the patient and mother and then later there was opportunity for questions with mother and father present. ENDOSCOPIST: Dr Mora. ANESTHESIA: Dr Scherer. FINDINGS: Levaquin 500 mg was given preprocedure given the obstructed situation. The patient was positioned and padded all 4 extremities. General anesthesia was induced. ENDOSCOPIC RETROGRADE CHOLANGIOPANCREATOGRAPHY: Esophagus - 10% views normal. Stomach - Gastritic and friable with a short configuration, making access to the antrum somewhat difficult and requiring multiple maneuvers back and forth. Eventually with tip deflection, the duodenum was intubated. Duodenum - Generally normal. The papilla was normal in appearance though rather small. It seemed tilted slightly to the right of the visual field. Small amount of blood was draining from the papilla during initial inspection. The sphincterotome was inserted and approached the papilla with a partial flex. Cannulation was achieved for about 1 cm and then a guidewire inserted. This went in the pancreatic direction and therefore it was locked in place and the sphincterotome withdrawn and then reinserted with a second wire. The next attempt to get the common duct was unsuccessful. The PD guidewire then came out. At that time, the papilla and common duct seemed to have adopted a different configuration or possibly the scope had adjusted itself in the stomach and there was a more linear progression. The sphincterotome was embedded and inserted and some wiggling maneuvers in the appropriate orientation yielded the common duct. A sphincterotomy of about 13 mm was done after the CBD wire was locked in place. Filling defects were seen. Balloon extraction was done and 2 trapezoidal stones removed. They were light yellow. Dye drained readily. Two additional sweeps were done, and a balloon occlusion cholangiogram also with no further stones delivered. Dye drained readily. No spilling of dye through the cystic duct was seen. IMPRESSION: Status post sphincterotomy and removal of common bile duct stones - in light of the initial pancreatic cannulation, the patient will be kept strictly n.p.o. overnight. [id number]/[facility] #: [id number] [facility]
[2017-02-24 10:10] LABS: Direct Bilirubin 0.2 mg/dL (0.03-0.18); Globulin 2.9 g/dL (2-4); Indirect Bilirubin 0.5 mg/dL (0.3-1.0); Total Bilirubin 0.7 mg/dL (0.2-1.0); Total Protein 5.9 g/dL (6.4-8.9)
--- NOTE | 2017-02-24 10:56 | PN ---
Progress Note - Progress Note Date of Service: 02/24/17 SOAP: Subjective: Having some "gas pain" but otherwise without complaint No N/V and is passing some flatus Objective: Temp Pulse Resp BP Pulse Ox 98.0 F 72 15 104/58 96 02/24/17 03:22 02/24/17 03:22 02/24/17 08:15 02/24/17 03:22 02/24/17 03:22 Intake & Output 02/22/17 02/23/17 02/24/17 02/25/17 06:59 06:59 06:59 06:59 Intake Total 3222054 1005 Output Total 650 175 880 Balance 2571 1880 125 Intake: IV Fluids 2050 2054 100 CLINDAMYCIN 900MG 50 NS (0.9%) 2050 1004 lr 1000 Oral 1170 0 0 Output: DUONG #1 175 80 Urine 650 0 800 Other: Estimated Void Small # Bowel Movements 0 0 0 # Voids 2 PEX: Comfortable Abd is soft and non-distended. Bowel sounds are present but are hypoactive. Incisions are clean and dry. DUONG in place with serosanguinous drainage in bulb Laboratory Last Values WBC 14.5 10^3/ul (3.5-10.8) H 02/24/17 09:42 RBC 4.92 10^6/ul (4.0-5.4) 02/24/17 09:42 Hgb 14.7 g/dl (12.0-16.0) 02/24/17 09:42 Hct 44 % (35-47) 02/24/17 09:42 MCV 89 fL (80-97) 02/24/17 09:42 MCH 30 pg (27-31) 02/24/17 09:42 MCHC 34 g/dl (31-36) 02/24/17 09:42 RDW 16 % (10.5-15) H 02/24/17 09:42 Plt Count 243 10^3/ul (150-450) 02/24/17 09:42 MPV 8 um3 (7.4-10.4) 02/24/17 09:42 Neut % (Auto) 55.2 % (38-83) 02/22/17 06:25 Lymph % (Auto) 33.8 % (25-47) 02/22/17 06:25 [place] % (Auto) 8.2 % (1-9) 02/22/17 06:25 Eos % (Auto) 2.6 % (0-6) 02/22/17 06:25 Baso % (Auto) 0.2 % (0-2) 02/22/17 06:25 Absolute Neuts (auto) 4.7 10^3/ul (1.5-7.7) 02/22/17 06:25 Absolute Lymphs (auto) 2.9 10^3/ul (1.0-4.8) 02/22/17 06:25 Absolute Monos (auto) 0.7 10^3/ul (0-0.8) 02/22/17 06:25 Absolute Eos (auto) 0.2 10^3/ul (0-0.6) 02/22/17 06:25 Absolute Basos (auto) 0 10^3/ul (0-0.2) 02/22/17 06:25 Absolute Nucleated RBC 0 10^3/ul 02/22/17 06:25 Nucleated RBC % 0 02/22/17 06:25 INR (Anticoag Therapy) 0.98 (0.89-1.11) 02/21/17 04:48 Sodium 138 mmol/L (133-145) 02/22/17 06:25 Potassium 3.8 mmol/L (3.5-5.0) 02/22/17 06:25 Chloride 105 mmol/L (101-111) 02/22/17 06:25 Carbon Dioxide 29 mmol/L (22-32) 02/22/17 06:25 Anion Gap 4 mmol/L (2-11) 02/22/17 06:25 BUN 6 mg/dL (6-24) 02/22/17 06:25 Creatinine 0.78 mg/dL (0.51-0.95) 02/22/17 06:25 Est GFR ( Amer) 122.4 (>60) 02/22/17 06:25 Est GFR (Non-Af Amer) 95.1 (>60) 02/22/17 06:25 BUN/Creatinine Ratio 7.7 (8-20) L 02/22/17 06:25 Glucose 88 mg/dL (70-100) 02/22/17 06:25 Lactic Acid 1.3 mmol/L (0.5-2.0) 02/20/17 07:50 Calcium 8.9 mg/dL (8.6-10.3) 02/22/17 06:25 Total Bilirubin 0.70 mg/dL (0.2-1.0) 02/24/17 09:41 Direct Bilirubin 0.20 mg/dL (0.03-0.18) H 02/24/17 09:41 Indirect Bilirubin 0.5 mg/dL (0.3-1.0) 02/24/17 09:41 AST 69 U/L (13-39) H 02/24/17 09:41 ALT 240 U/L (7-52) H 02/24/17 09:41 Alkaline Phosphatase 162 U/L (34-104) H 02/24/17 09:41 C-Reactive Protein 10.18 mg/L (< 5.00) H 02/20/17 07:50 Total Protein 5.9 g/dL (6.4-8.9) L 02/24/17 09:41 Albumin 3.0 g/dL (3.2-5.2) L 02/24/17 09:41 Globulin 2.9 g/dL (2-4) 02/24/17 09:41 Albumin/Globulin Ratio 1.0 (1-3) 02/24/17 09:41 Lipase 4133 U/L (11.0-82.0) H 02/24/17 09:41 Beta HCG, Quant < 0.60 mIU/mL 02/20/17 07:50 Urine Color Ava 02/20/17 09:57 Urine Appearance Cloudy 02/20/17 09:57 Urine pH 7.0 (5-9) 02/20/17 09:57 Ur Specific [place] 1.023 (1.010-1.030) 02/20/17 09:57 Urine Protein 1+(30 mg/dl) (Negative) H 02/20/17 09:57 Urine Ketones Negative (Negative) 02/20/17 09:57 Urine Blood Negative (Negative) 02/20/17 09:57 Urine Nitrate Negative (Negative) 02/20/17 09:57 Urine Bilirubin Negative (Negative) 02/20/17 09:57 Urine Urobilinogen Negative (Negative) 02/20/17 09:57 Ur Leukocyte Esterase 3+ (Negative) H 02/20/17 09:57 Urine WBC (Auto) 3+(>20/hpf) (Absent) H 02/20/17 09:57 Urine RBC (Auto) Absent (Absent) 02/20/17 09:57 Ur Squamous Epith Cells Present (Absent) H 02/20/17 09:57 Amorphous Crystals Present (Absent) H 02/20/17 09:57 Urine Bacteria Absent (Absent) 02/20/17 09:57 Urine Glucose Negative (Negative) 02/20/17 09:57 Hepatitis A IgM Ab Nonreactive (Nonreactive) 02/20/17 07:50 Hep Bs Antigen Nonreactive (Nonreactive) 02/20/17 07:50 Hep B Core IgM Ab Nonreactive (Nonreactive) 02/20/17 07:50 Hepatitis C Antibody Nonreactive (Nonreactive) 02/20/17 07:50 Assessment: S/P lap choly POD # 2 with cholangiogram S/P ERCP-results reviewed with Dr. Mora LFT's improved however lipase elevated today Plan: Will d/c DUONG drain today Diet deferred to GI--possible pancreatitis after ERCP-NPO for now and follow. He can be discharged home from surgical standpoint with post op follow up next week when recovered. Discussed with patient.
--- NOTE | 2017-02-24 12:14 | PN ---
Subjective Date of Service: 02/24/17 Interval History: Patient seen and examined at bedside. Pt reports that he has epigastric pain and right upper quad pain. He also reports 1 episode of vomiting this morning. Pt reports that he is passing flatus. Denies fever, chills, shortness of breath , chest discomfort, or diarrhea. Pt has been up and ambulating in the halls. Family History: Unchanged from Admission Social History: Unchanged from Admission Past Medical History: Unchanged from Admission Objective Active Medications: Acetaminophen (Tylenol Tab*) 650 mg PO Q6H PRN Reason: FEVER/PAIN Alprazolam (Xanax Tab*) 0.5 mg PO DAILY PRN Reason: ANXIETY Sodium Chloride (Ns 0.9% 1000 Ml*) 1,000 mls @ 125 mls/hr IV PER RATE [facility] Morphine Sulfate (Morphine Inj (Syringe)*) 2 mg IV Q2H PRN Reason: PAIN Ondansetron HCl (Zofran Inj*) 4 mg IV Q6H PRN Reason: NAUSEA Oxycodone HCl (Roxycodone Tab*) 5 mg PO ONCE PRN Stop: 02/24/17 17:29 Sertraline HCl (Zoloft*) 100 mg PO DAILY [facility] Vital Signs 02/23/17 02/23/17 02/23/17 12:43 14:58 17:23 Temperature 98.2 F 96.8 F Pulse Rate 73 96 Respiratory 16 16 14 Rate Blood Pressure 106/50 117/68 (mmHg) O2 Sat by Pulse 97 96 Oximetry 02/23/17 02/23/17 02/23/17 17:25 17:30 17:45 Temperature Pulse Rate 92 93 88 Respiratory 14 23 24 Rate Blood Pressure 116/66 118/69 111/72 (mmHg) O2 Sat by Pulse 96 96 100 Oximetry 02/23/17 02/23/17 02/23/17 18:04 18:14 19:30 Temperature 98.0 F 98.0 F 98.4 F Pulse Rate 81 81 78 Respiratory 16 16 16 Rate Blood Pressure 118/68 118/68 126/75 (mmHg) O2 Sat by Pulse 93 93 97 Oximetry 02/23/17 02/24/17 02/24/17 23:24 00:00 00:58 Temperature 98.1 F Pulse Rate 73 Respiratory 16 16 Rate Blood Pressure 111/54 (mmHg) O2 Sat by Pulse 96 96 Oximetry 02/24/17 02/24/17 02/24/17 01:58 03:22 07:15 Temperature 98.0 F Pulse Rate 72 Respiratory 16 16 16 Rate Blood Pressure 104/58 (mmHg) O2 Sat by Pulse 96 Oximetry 02/24/17 02/24/17 07:39 08:15 Temperature 97.7 F Pulse Rate 72 Respiratory 21 15 Rate Blood Pressure 126/67 (mmHg) O2 Sat by Pulse 100 Oximetry Oxygen Devices in Use Now: None Appearance: NAD, sitting up in a chair Ears/Nose/Mouth/Throat: Mucous Membranes Moist Respiratory: Symmetrical Chest Expansion and Respiratory Effort, Clear to Auscultation Cardiovascular: NL Sounds; No Murmurs; No JVD, RRR Abdominal: - - Bowel sounds present, abdomen soft, tender in the epigastric area and RUQ Extremities: No Edema Skin: No Rash or Ulcers Neurological: Alert and Oriented x 3, NL Muscle Strength and Tone Lines/Tubes/Other Access: Clean, Dry and Intact Peripheral IV - site benign Nutrition: Taking PO's Result Diagrams: 02/24/17 09:42 02/22/17 06:25 Additional Lab and Data: Laboratory Tests 02/21/17 04:48 Total Bilirubin 1.60 H AST 266 H ALT 441 H Alkaline Phosphatase 135 H Laboratory Tests 02/22/17 06:25 Total Bilirubin 0.80 AST 105 H ALT 337 H Alkaline Phosphatase 132 H Laboratory Tests 02/23/17 05:16 Total Bilirubin 1.00 AST 131 H ALT 349 H Alkaline Phosphatase 184 H Laboratory Tests 02/20/17 02/21/17 02/22/17 07:50 04:48 06:25 WBC 12.5 H 9.1 8.5 Direct Bilirubin AST ALT Alkaline Phosphatase Lipase 02/24/17 02/24/17 09:41 09:42 WBC 14.5 H Direct Bilirubin 0.20 H AST 69 H ALT 240 H Alkaline Phosphatase 162 H Lipase 4133 H Diagnostic Imaging: GB US - cholelithiasis with GB sludge, CBD 7mm with debris present Intraoperataive cholangiogram - possible CBD stone Assess/Plan/Problems-Billing Assessment: Mr. Thomas is a 21 yo female transitioning to male on testosterone supplementation who presented with c/o RUQ abd pain and elevated transaminases. Who is status post cholecystectomy on 02/22/17. - Patient Problems (1) Acute pancreatitis Code(s): K85.90 - ACUTE PANCREATITIS WITHOUT NECROSIS OR INFECTION, UNSP SNOMED Code(s): 546841140 Comment: - Suspect post ERCP pancreatitis - Lipase ~ 4000 today - Will trend Lipase and LFTs - NPO, pain medication, IVFs and supportive care (2) Biliary colic Code(s): K80.50 - CALCULUS OF BILE DUCT W/O CHOLANGITIS OR CHOLECYST W/O OBST SNOMED Code(s): 94302186 Comment: - POD #2, s/p cholecystectomy - Intraop changiogram showed possible CBD stone - s/p ERCP yesterday (3) Transaminitis Code(s): R74.0 - NONSPEC ELEV OF LEVELS OF TRANSAMNS & LACTIC ACID DEHYDRGNSE SNOMED Code(s): 797621176 Comment: - Secondary to biliary obstruction - Improving (4) Anxiety and depression Code(s): F41.8 - OTHER SPECIFIED ANXIETY DISORDERS SNOMED Code(s): 552742293 Comment: - Stable - continue Zoloft and prn xanax (5) Transgender Code(s): F64.0 - TRANSSEXUALISM SNOMED Code(s): 04683658746722890 Comment: - Female transitioning to male - On testosterone supplementation (6) DVT prophylaxis Code(s): BKX3005 - SNOMED Code(s): 002702264 Comment: - Low risk - SCDs (7) Full code status Code(s): Z78.9 - OTHER SPECIFIED HEALTH STATUS SNOMED Code(s): 315714445 Status and Disposition: Inpatient. Now with post ERCP pancreatitis. Discharge to home when medically stable, in 3-4 days.
[2017-02-24] MEDS: ALPRAZolam TAB* 0.5 MG PO PRN (12:57)
--- NOTE | 2017-02-24 17:47 | PN ---
Medicine Progress Note - Subjective Subjective: Patient seen and examined. S/p ERCP with sphincterotomy and balloon sweeping for choledocholithiasis yesterday. C/o epigastric pain this morning which has only slightly improved. No nausea/emesis. Poor appetite. No fevers/chills. - Objective Objective: Vital Signs 02/23/17 02/23/17 02/23/17 18:04 18:14 19:30 Temperature 98.0 F 98.0 F 98.4 F Pulse Rate 81 81 78 Respiratory 16 16 16 Rate Blood Pressure 118/68 118/68 126/75 (mmHg) O2 Sat by Pulse 93 93 97 Oximetry 02/23/17 02/23/17 02/23/17 19:48 20:48 22:46 Temperature Pulse Rate Respiratory 16 16 16 Rate Blood Pressure (mmHg) O2 Sat by Pulse Oximetry 02/23/17 02/24/17 02/24/17 23:24 00:00 00:58 Temperature 98.1 F Pulse Rate 73 Respiratory 16 16 Rate Blood Pressure 111/54 (mmHg) O2 Sat by Pulse 96 96 Oximetry 02/24/17 02/24/17 02/24/17 01:58 03:22 07:15 Temperature 98.0 F Pulse Rate 72 Respiratory 16 16 16 Rate Blood Pressure 104/58 (mmHg) O2 Sat by Pulse 96 Oximetry 02/24/17 02/24/17 02/24/17 07:39 08:00 08:15 Temperature 97.7 F Pulse Rate 72 Respiratory 21 16 15 Rate Blood Pressure 126/67 (mmHg) O2 Sat by Pulse 100 100 Oximetry 02/24/17 02/24/17 02/24/17 12:15 12:29 12:57 Temperature 98.4 F Pulse Rate 74 Respiratory 21 16 16 Rate Blood Pressure 125/78 (mmHg) O2 Sat by Pulse 100 Oximetry 02/24/17 02/24/17 02/24/17 13:29 14:57 16:00 Temperature Pulse Rate Respiratory 16 16 Rate Blood Pressure (mmHg) O2 Sat by Pulse 100 Oximetry 02/24/17 17:11 Temperature Pulse Rate Respiratory 18 Rate Blood Pressure (mmHg) O2 Sat by Pulse Oximetry Current Medications Acetaminophen (Tylenol Tab*) 650 mg PO Q6H PRN PRN Reason: FEVER/PAIN Last Admin: 02/21/17 19:56 Dose: 650 mg Alprazolam (Xanax Tab*) 0.5 mg PO DAILY PRN PRN Reason: ANXIETY Last Admin: 02/24/17 12:57 Dose: 0.5 mg Sodium Chloride (Ns 0.9% 1000 Ml*) 1,000 mls @ 125 mls/hr IV PER RATE [facility] Last Admin: 02/24/17 17:15 Dose: 125 mls/hr Morphine Sulfate (Morphine Inj (Syringe)*) 2 mg IV Q2H PRN PRN Reason: PAIN Last Admin: 02/24/17 17:11 Dose: 2 mg Ondansetron HCl (Zofran Inj*) 4 mg IV Q6H PRN PRN Reason: NAUSEA Last Admin: 02/20/17 17:57 Dose: 4 mg Sertraline HCl (Zoloft*) 100 mg PO DAILY [facility] Last Admin: 02/24/17 08:37 Dose: 100 mg Intake & Output 02/22/17 02/23/17 02/24/17 02/25/17 06:59 06:59 06:59 06:59 Intake Total 1050 1005 2130 Output Total 016 279 4680 Balance 875 125 -120 Intake: IV Fluids 1050 1005 1770 CLINDAMYCIN 900MG 50 NS (0.9%) 1005 1770 lr 1000 Oral 0 0 360 Output: DUONG #1 175 80 50 Urine 0 800 1000 Emesis 1200 Other: Estimated Void Small # Bowel Movements 0 0 0 ADLs: Meal Record Start: 02/20/17 12: 04 Freq: DAILY@0900,1400,1800 Status: Active Document 02/20/17 14:00 [id number] (Rec: 02/20/17 15:05 [id number] MED-C11) Document 02/21/17 09:00 [id number] (Rec: 02/21/17 10:39 [id number] MED-C11) Document 02/21/17 14:00 [id number] (Rec: 02/21/17 14:36 [id number] MED-C11) Document 02/21/17 18:00 [id number] (Rec: 02/21/17 22:27 [id number] MED-C09) Document 02/22/17 09:00 [id number] (Rec: 02/22/17 10:58 [id number] MED-C11) Document 02/22/17 14:00 [id number] (Rec: 02/22/17 14:50 [id number] MED-C11) Document 02/22/17 17:55 [id number] (Rec: 02/22/17 17:55 [id number] MED-C11) Document 02/23/17 09:00 [id number] (Rec: 02/23/17 10:11 [id number] MED-C09) Document 02/23/17 13:56 [id number] (Rec: 02/23/17 14:02 [id number] MED-C11) Document 02/24/17 09:00 [id number] (Rec: 02/24/17 11:32 [id number] MED-C11) Document 02/24/17 14:00 [id number] (Rec: 02/24/17 14:53 [id number] MED-C11) Intake and Output Start: 02/20/17 12: 04 Freq: DAILY@0600,1400,2200 Status: Active Document 02/20/17 14:00 [id number] (Rec: 02/20/17 15:05 [id number] MED-C11) Document 02/20/17 22:00 [id number] (Rec: 02/20/17 22:53 [id number] MED-C11) Document 02/21/17 06:00 [id number] (Rec: 02/21/17 06:32 [id number] MEDL-C01) Document 02/21/17 14:00 [id number] (Rec: 02/21/17 14:36 [id number] MED-C11) Document 02/21/17 22:00 [id number] (Rec: 02/21/17 22:28 [id number] MED-C09) Document 02/22/17 06:00 [id number] (Rec: 02/22/17 06:43 [id number] MEDL-C01) Document 02/22/17 14:00 [id number] (Rec: 02/22/17 14:50 [id number] MED-C11) Document 02/23/17 04:01 [id number] (Rec: 02/23/17 04:01 [id number] MED-C15) Document 02/23/17 06:00 [id number] (Rec: 02/23/17 06:15 [id number] MED-C42) Document 02/23/17 10:14 [id number] (Rec: 02/23/17 10:14 [id number] MED-C02) Document 02/23/17 13:56 [id number] (Rec: 02/23/17 14:02 [id number] MED-C11) Document 02/23/17 22:00 [id number] (Rec: 02/23/17 22:27 [id number] MED-C11) Document 02/24/17 05:43 [id number] (Rec: 02/24/17 05:43 [id number] MED-C26) Document 02/24/17 11:32 [id number] (Rec: 02/24/17 11:32 [id number] MED-C13) Document 02/24/17 14:00 [id number] (Rec: 02/24/17 14:53 [id number] MED-C11) Last Finger Stick Glucose Documented by Nursing: General: Lungs: Cardiovascular: Abdomen: Extremities: Neuro: - Labs Labs: Laboratory Results - last 24 hr 02/24/17 02/24/17 09:41 09:42 WBC 14.5 H RBC 4.92 Hgb 14.7 Hct 44 MCV 89 MCH 30 MCHC 34 RDW 16 H Plt Count 243 MPV 8 Total Bilirubin 0.70 Direct Bilirubin 0.20 H Indirect Bilirubin 0.5 AST 69 H ALT 240 H Alkaline Phosphatase 162 H Total Protein 5.9 L Albumin 3.0 L Globulin 2.9 Albumin/Globulin Ratio 1.0 Lipase 4133 H - Assessment Assessment: JEFF DRAPER is a 21 year old F. Patient's diagnosis is ABD PAIN.
--- NOTE | 2017-02-24 17:48 | PN ---
Progress Note - Progress Note Date of Service: 02/24/17 - Gastroenterology
--- NOTE | 2017-02-24 18:02 | PN ---
Progress Note - Progress Note Date of Service: 02/24/17 - Gastroenterology SOAP: Subjective: Patient seen and examined. S/p ERCP with sphincterotomy and balloon sweeping for choledocholithiasis yesterday. DUONG drain was removed today. Complaing of epigastric pain since morning. Has improved slightly with bowel rest and pain medications. No nausea/emesis. No fevers/chills. No appetite. Passing flatus. Objective: VS 98.4 21 100% on RA 125/78 General: NAD HEENT: Dry MM CV: RRR Pulm: CTAB Abdomen: Soft. TTP near incisional sites. BS present in all 4 quadrants. Steri- strips C/D/I. No rebound/guarding. Extremities: No edema. Labs: WBC 14.5 T.bili 0.70 ALP 162 Hgb 14.7 D.bili 0.20 Lipase 4133 Hct 44 AST 69 Plt 243 ALT 240 Assessment: 21 yo female to male transgender s/p lap martín and ERCP with balloon sweeping and sphincterotomy due to gallstone pancreatitis. 1. Gallstone pancreatitis s/p lap martín POD#2 ~Surgery removed DUONG drain today. 2. Elevated lipase levels s/p ERCP with successful balloon sweeping and sphincterotomy ~LFTs downtrending. Lipase is elevated today. Plan: 1. NPO today with IVFs for pancreatitis. 2. Diet advancement once pain has improved. 3. Pain control per Hospitalist team. Thank you for allowing us to participate in the care of your patient. Please do not hesitate to call us with any questions or concerns. Carmen Urban D.O.
[2017-02-25 05:46] LABS: Hematocrit 43 % (35-47); Hemoglobin 14.4 g/dl (12.0-16.0); Mean Corpuscular HGB Conc 34 g/dl (31-36); Mean Corpuscular Hemoglobin 30 pg (27-31); Mean Corpuscular Volume 89 fL (80-97); Mean Platelet Volume 8 um3 (7.4-10.4); Red Blood Count 4.82 10^6/ul (4.0-5.4); Red Cell Distribution Width 16 % (10.5-15)
[2017-02-25 06:06] LABS: Albumin 3.5 g/dL (3.2-5.2); BUN/Creatinine Ratio 10.8 (8-20); Calcium 8.8 mg/dL (8.6-10.3); Direct Bilirubin 0.2 mg/dL (0.03-0.18); EGFR Non-African American 117.4 (>60); Globulin 2.6 g/dL (2-4); Indirect Bilirubin 0.6 mg/dL (0.3-1.0); Potassium 3.5 mmol/L (3.5-5.0); Total Bilirubin 0.8 mg/dL (0.2-1.0); Total Protein 6.1 g/dL (6.4-8.9)
[2017-02-25] MEDS: NS 0.9% 1000 ML* 1,000 ML IV SCH ×2 (09:19→20:17)
--- NOTE | 2017-02-25 09:20 | PN ---
Subjective Date of Service: 02/25/17 Interval History: Patient seen and examined at bedside. Pt states that his abdominal pain is improving. Denies fever, chills, shortness of breath, chest discomfort, N/V/D. Reports passing flatus. Family History: Unchanged from Admission Social History: Unchanged from Admission Past Medical History: Unchanged from Admission Objective Active Medications: Acetaminophen (Tylenol Tab*) 650 mg PO Q6H PRN Reason: FEVER/PAIN Alprazolam (Xanax Tab*) 0.5 mg PO DAILY PRN Reason: ANXIETY Sodium Chloride (Ns 0.9% 1000 Ml*) 1,000 mls @ 125 mls/hr IV PER RATE [facility] Morphine Sulfate (Morphine Inj (Syringe)*) 2 mg IV Q2H PRN Reason: PAIN Ondansetron HCl (Zofran Inj*) 4 mg IV Q6H PRN Reason: NAUSEA Sertraline HCl (Zoloft*) 100 mg PO DAILY [facility] Vital Signs 02/24/17 02/24/17 02/24/17 12:15 12:29 12:57 Temperature 98.4 F Pulse Rate 74 Respiratory 21 16 16 Rate Blood Pressure 125/78 (mmHg) O2 Sat by Pulse 100 Oximetry 02/24/17 02/24/17 02/24/17 13:29 14:57 16:00 Temperature Pulse Rate Respiratory 16 16 Rate Blood Pressure (mmHg) O2 Sat by Pulse 100 Oximetry 02/24/17 02/24/17 02/24/17 20:38 21:22 22:22 Temperature 98.1 F Pulse Rate 74 Respiratory 20 18 16 Rate Blood Pressure 124/73 (mmHg) O2 Sat by Pulse 98 Oximetry 02/24/17 02/25/17 23:36 03:33 Temperature 98.1 F 98.3 F Pulse Rate 76 82 Respiratory 16 16 Rate Blood Pressure 121/67 115/67 (mmHg) O2 Sat by Pulse 97 99 Oximetry Oxygen Devices in Use Now: None Appearance: NAD, laying in bed Ears/Nose/Mouth/Throat: Mucous Membranes Moist Respiratory: Symmetrical Chest Expansion and Respiratory Effort, Clear to Auscultation Cardiovascular: NL Sounds; No Murmurs; No JVD, RRR Abdominal: - - Bowel sounds present, abdomen soft, tender in the epigastric area and near incision sites Extremities: No Edema Skin: No Rash or Ulcers, - - 3 lap sites with steri strips intact, DSG to DUONG site clean, dry and intact Neurological: Alert and Oriented x 3, NL Muscle Strength and Tone Lines/Tubes/Other Access: Clean, Dry and Intact Peripheral IV - site benign Nutrition: Taking PO's Result Diagrams: 02/25/17 05:20 02/25/17 05:20 Additional Lab and Data: Laboratory Tests 02/21/17 04:48 Total Bilirubin 1.60 H AST 266 H ALT 441 H Alkaline Phosphatase 135 H Laboratory Tests 02/22/17 06:25 Total Bilirubin 0.80 AST 105 H ALT 337 H Alkaline Phosphatase 132 H Laboratory Tests 02/23/17 05:16 Total Bilirubin 1.00 AST 131 H ALT 349 H Alkaline Phosphatase 184 H Laboratory Tests 02/20/17 02/21/17 02/22/17 07:50 04:48 06:25 WBC 12.5 H 9.1 8.5 Direct Bilirubin AST ALT Alkaline Phosphatase Lipase 02/24/17 02/24/17 09:41 09:42 WBC 14.5 H Direct Bilirubin 0.20 H AST 69 H ALT 240 H Alkaline Phosphatase 162 H Lipase 4133 H Diagnostic Imaging: GB US - cholelithiasis with GB sludge, CBD 7mm with debris present Intraoperataive cholangiogram - possible CBD stone Assess/Plan/Problems-Billing Assessment: Mr. Thomas is a 21 yo female transitioning to male on testosterone supplementation who presented with c/o RUQ abd pain and elevated transaminases. Who is status post cholecystectomy on 02/22/17. - Patient Problems (1) Acute pancreatitis Code(s): K85.90 - ACUTE PANCREATITIS WITHOUT NECROSIS OR INFECTION, UNSP SNOMED Code(s): 066161659 Comment: - Suspect post ERCP pancreatitis - ABD pain is improving - Lipase ~ 1200 today - Will trend Lipase and LFTs - NPO, pain medication, IVFs and supportive care (2) Biliary colic Code(s): K80.50 - CALCULUS OF BILE DUCT W/O CHOLANGITIS OR CHOLECYST W/O OBST SNOMED Code(s): 62887625 Comment: - POD #3, s/p cholecystectomy - Intraop changiogram showed possible CBD stone - s/p ERCP 02/23 (3) Transaminitis Code(s): R74.0 - NONSPEC ELEV OF LEVELS OF TRANSAMNS & LACTIC ACID DEHYDRGNSE SNOMED Code(s): 735376842 Comment: - Secondary to biliary obstruction - Improving (4) Anxiety and depression Code(s): F41.8 - OTHER SPECIFIED ANXIETY DISORDERS SNOMED Code(s): 600805174 Comment: - Stable - Continue Zoloft and prn xanax (5) Transgender Code(s): F64.0 - TRANSSEXUALISM SNOMED Code(s): 42392617476642621 Comment: - Female transitioning to male - On testosterone supplementation (6) DVT prophylaxis Code(s): RYH8432 - SNOMED Code(s): 722303465 Comment: - Low risk - SCDs (7) Full code status Code(s): Z78.9 - OTHER SPECIFIED HEALTH STATUS SNOMED Code(s): 242585582 Status and Disposition: Inpatient. Now with post ERCP pancreatitis. Discharge to home when medically stable, in 1-2 days.
[2017-02-25] MEDS: Sertraline* 100 MG TAB PO SCH (09:28)
[2017-02-25] MEDS: Morphine INJ* 4 MG/ML 1 ML CARPUJECT IV PRN (20:18)
--- NOTE | 2017-02-25 23:01 | PN ---
Progress Note - Progress Note Date of Service: 02/25/17 - Gastroenterology Note: Patient seen and examined. No new overnight events. Pain is improving slowly. Clear liquids earlier this morning caused epigastric pain. No fevers/chills. No nausea/emesis. VS: 98 97 20 99% RA 133/69 General: NAD HEENT: MMM CV: RRR Pulm: CTAB Abdomen: Soft. TTP near incisional sites. BS present in all 4 quadrants. Steri- strips C/D/I. No rebound/guarding. Extremities: No edema. Labs: WBC 13.0 T.bili 0.80 ALP 151 Hgb 14.4 D.bili 0.20 Lipase 1173 Hct 43 AST 38 Plt 226 ALT 169 Assessment: 21 yo female to male transgender s/p lap martín and ERCP with balloon sweeping and sphincterotomy due to gallstone pancreatitis. 1. Gallstone pancreatitis s/p lap martín POD#3 ~Surgery removed DUONG drain yesterday. 2. Elevated lipase levels s/p ERCP with successful balloon sweeping and sphincterotomy ~LFTs and lipase downtrending today. Plan: 1. Clear liquid diet with IVFs at 125 cc/hr. 2. Diet advancement once pain has improved. 3. Pain control per Hospitalist team. 4. Anticipate discharge home soon. Thank you for allowing us to participate in the care of your patient. Please do not hesitate to call us with any questions or concerns. Carmen Urban D.O.
[2017-02-26] MEDS: Morphine INJ* 4 MG/ML 1 ML CARPUJECT IV PRN (00:05)
[2017-02-26] MEDS: NS 0.9% 1000 ML* 1,000 ML IV SCH ×2 (03:28→14:48)
[2017-02-26 07:38] LABS: Hematocrit 42 % (35-47); Mean Corpuscular HGB Conc 33 g/dl (31-36); Mean Corpuscular Hemoglobin 30 pg (27-31); Mean Corpuscular Volume 89 fL (80-97); Mean Platelet Volume 8 um3 (7.4-10.4); Red Blood Count 4.77 10^6/ul (4.0-5.4); Red Cell Distribution Width 16 % (10.5-15); White Blood Count 15.5 10^3/ul (3.5-10.8)
[2017-02-26 07:39] LABS: Add Diff/Slide Review? Slide Review Added; Comments Flag Yes
[2017-02-26 07:54] LABS: Albumin 3.7 g/dL (3.2-5.2); BUN/Creatinine Ratio 11.4 (8-20); Calcium 9.2 mg/dL (8.6-10.3); Direct Bilirubin 0.2 mg/dL (0.03-0.18); EGFR African American 138.6 (>60); EGFR Non-African American 107.8 (>60); Indirect Bilirubin 0.7 mg/dL (0.3-1.0); Potassium 4.1 mmol/L (3.5-5.0); Total Bilirubin 0.9 mg/dL (0.2-1.0); Total Protein 6.7 g/dL (6.4-8.9)
[2017-02-26] MEDS: Sertraline* 100 MG TAB PO SCH (08:19)
[2017-02-26] MEDS ORDERED: HYDROcodone/ACETAMIN 5-325 MG* 1 TAB PO PRN (11:55)
--- NOTE | 2017-02-26 12:06 | PN ---
Progress Note - Progress Note Date of Service: 02/26/17 SOAP: Subjective: Feels much better, minimal pain Tolerating po Wants to go home Objective: Temp Pulse Resp BP Pulse Ox 98.6 F 94 18 122/73 98 02/26/17 12:01 02/26/17 07:52 02/26/17 08:00 02/26/17 07:52 02/26/17 08:23 PEX: Comfortable Incisions clean and dry Abd soft and non-distended. Appropriate incisional pain Laboratory Results - last 24 hr 02/26/17 02/26/17 07:16 07:16 WBC 15.5 H RBC 4.77 Hgb 14.0 Hct 42 MCV 89 MCH 30 MCHC 33 RDW 16 H Plt Count 237 MPV 8 Neut % (Auto) 77.1 Lymph % (Auto) 14.9 L [place] % (Auto) 7.0 Eos % (Auto) 0.7 Baso % (Auto) 0.3 Absolute Neuts (auto) 12.0 H Absolute Lymphs (auto) 2.3 Absolute Monos (auto) 1.1 H Absolute Eos (auto) 0.1 Absolute Basos (auto) 0.1 Absolute Nucleated RBC 0 Nucleated RBC % 0 Sodium 134 Potassium 4.1 Chloride 101 Carbon Dioxide 23 Anion Gap 10 BUN 8 Creatinine 0.70 Est GFR ( Amer) 138.6 Est GFR (Non-Af Amer) 107.8 BUN/Creatinine Ratio 11.4 Glucose 65 L Calcium 9.2 Total Bilirubin 0.90 Direct Bilirubin 0.20 H Indirect Bilirubin 0.7 AST 27 ALT 121 H Alkaline Phosphatase 144 H Total Protein 6.7 Albumin 3.7 Globulin 3.0 Albumin/Globulin Ratio 1.2 Lipase 71 Assessment: S/P lap choly and ERCP Pancreatitis-resolving Plan: Advance diet OK for d/c from surgical standpoint Instructions and follow up appointment discussed with patient and mother.
[2017-02-26] MEDS ORDERED: Morphine INJ* 2 MG/ML 1 ML SYRINGE (TWO MG - NEW SYRINGE VERSION) IV PRN (15:15)
[2017-02-26 15:59] VITALS: BP 131/70
--- NOTE | 2017-02-26 16:49 | PN ---
Subjective Date of Service: 02/26/17 Interval History: Patient seen and examined at bedside. Denies fever, chills, shortness of breath , chest discomfort, N/V/D. Pt states that he is feeling well, tolerating a full liquid diet. He has also tolerated some fruit. He is anxious for discharge to home today. Family History: Unchanged from Admission Social History: Unchanged from Admission Past Medical History: Unchanged from Admission Objective Active Medications: Acetaminophen (Tylenol Tab*) 650 mg PO Q6H PRN Reason: FEVER/PAIN Hydrocodone Bitart/Acetaminophen ([place] 5-325 Tab*) 1 tab PO Q4H PRN Reason: PAIN Alprazolam (Xanax Tab*) 0.5 mg PO DAILY PRN Reason: ANXIETY Sodium Chloride (Ns 0.9% 1000 Ml*) 1,000 mls @ 125 mls/hr IV PER RATE MADY Morphine Sulfate (Morphine Inj (Syringe)*) 2 mg IV Q2H PRN Reason: PAIN Ondansetron HCl (Zofran Inj*) 4 mg IV Q6H PRN Reason: NAUSEA Sertraline HCl (Zoloft*) 100 mg PO DAILY [facility] Vital Signs 02/25/17 02/25/17 02/25/17 19:41 20:18 20:20 Temperature 99.1 F Pulse Rate 90 Respiratory 20 20 16 Rate Blood Pressure 117/71 (mmHg) O2 Sat by Pulse 100 Oximetry 02/25/17 02/25/17 02/26/17 21:18 23:40 00:00 Temperature 98.9 F Pulse Rate 82 Respiratory 16 16 Rate Blood Pressure 109/59 (mmHg) O2 Sat by Pulse 98 99 Oximetry 02/26/17 02/26/17 02/26/17 00:05 01:05 03:25 Temperature 98.7 F Pulse Rate 72 Respiratory 16 18 16 Rate Blood Pressure 121/65 (mmHg) O2 Sat by Pulse 99 Oximetry 02/26/17 02/26/17 02/26/17 07:52 08:00 08:23 Temperature 99.0 F Pulse Rate 94 Respiratory 18 18 Rate Blood Pressure 122/73 (mmHg) O2 Sat by Pulse 98 98 98 Oximetry 02/26/17 02/26/17 02/26/17 11:40 12:01 15:21 Temperature 99.6 F 98.6 F 98.2 F Pulse Rate 91 92 Respiratory 16 18 Rate Blood Pressure 117/73 131/70 (mmHg) O2 Sat by Pulse 98 100 Oximetry 02/26/17 16:00 Temperature Pulse Rate Respiratory Rate Blood Pressure (mmHg) O2 Sat by Pulse 100 Oximetry Oxygen Devices in Use Now: None Appearance: NAD, laying in bed Ears/Nose/Mouth/Throat: Mucous Membranes Moist Respiratory: Symmetrical Chest Expansion and Respiratory Effort, Clear to Auscultation Cardiovascular: NL Sounds; No Murmurs; No JVD, RRR Abdominal: NL Sounds; No Tenderness; No Distention Extremities: No Edema Skin: No Rash or Ulcers Neurological: Alert and Oriented x 3, NL Muscle Strength and Tone Lines/Tubes/Other Access: Clean, Dry and Intact Peripheral IV - site benign Nutrition: Taking PO's Result Diagrams: 02/26/17 07:16 02/26/17 07:16 Additional Lab and Data: Laboratory Tests 02/21/17 04:48 Total Bilirubin 1.60 H AST 266 H ALT 441 H Alkaline Phosphatase 135 H Laboratory Tests 02/22/17 06:25 Total Bilirubin 0.80 AST 105 H ALT 337 H Alkaline Phosphatase 132 H Laboratory Tests 02/23/17 05:16 Total Bilirubin 1.00 AST 131 H ALT 349 H Alkaline Phosphatase 184 H Laboratory Tests 02/20/17 02/21/17 02/22/17 07:50 04:48 06:25 WBC 12.5 H 9.1 8.5 Direct Bilirubin AST ALT Alkaline Phosphatase Lipase 02/23/17 02/24/17 02/24/17 05:16 09:41 09:42 WBC 14.5 H Direct Bilirubin 0.30 H 0.20 H AST 69 H ALT 240 H Alkaline Phosphatase 162 H Lipase 4133 H 02/25/17 02/25/17 02/26/17 05:20 05:20 07:16 WBC 13.0 H Direct Bilirubin 0.20 H 0.20 H AST 38 27 ALT 169 H 121 H Alkaline Phosphatase 151 H 144 H Lipase 1173 H 71 02/26/17 07:16 WBC 15.5 H Direct Bilirubin AST ALT Alkaline Phosphatase Lipase Diagnostic Imaging: GB US - cholelithiasis with GB sludge, CBD 7mm with debris present Intraoperataive cholangiogram - possible CBD stone Assess/Plan/Problems-Billing Assessment: Mr. Thomas is a 21 yo female transitioning to male on testosterone supplementation who presented with c/o RUQ abd pain and elevated transaminases. Who is status post cholecystectomy on 02/22/17. - Patient Problems (1) Acute pancreatitis Code(s): K85.90 - ACUTE PANCREATITIS WITHOUT NECROSIS OR INFECTION, UNSP SNOMED Code(s): 360558730 Comment: - Suspect post ERCP pancreatitis - ABD pain is improving - Continues to have leukocytosis, afebrile - Lipase ~ 70 today (2) Biliary colic Code(s): K80.50 - CALCULUS OF BILE DUCT W/O CHOLANGITIS OR CHOLECYST W/O OBST SNOMED Code(s): 52833864 Comment: - POD #4, s/p cholecystectomy - Intraop changiogram showed possible CBD stone - s/p ERCP 02/23 (3) Transaminitis Code(s): R74.0 - NONSPEC ELEV OF LEVELS OF TRANSAMNS & LACTIC ACID DEHYDRGNSE SNOMED Code(s): 918882561 Comment: - Secondary to biliary obstruction - Improving (4) Anxiety and depression Code(s): F41.8 - OTHER SPECIFIED ANXIETY DISORDERS SNOMED Code(s): 065649536 Comment: - Stable - Continue Zoloft and prn xanax (5) Transgender Code(s): F64.0 - TRANSSEXUALISM SNOMED Code(s): 31431196419394706 Comment: - Female transitioning to male - On testosterone supplementation (6) DVT prophylaxis Code(s): DPC9390 - SNOMED Code(s): 027954866 Comment: - Low risk - SCDs (7) Full code status Code(s): Z78.9 - OTHER SPECIFIED HEALTH STATUS SNOMED Code(s): 311074228 Status and Disposition: Inpatient. Stable for discharge to home later today, if able tolerate a low fat diet.
--- NOTE | 2017-02-27 15:05 | DS ---
CC: [facility]; Angela Valladares NP, [place], [place] * DISCHARGE SUMMARY: DATE OF ADMISSION: 02/20/17 DATE OF DISCHARGE: 02/26/17 ATTENDING PHYSICIAN: Dr. Toby Martinez * (dictated by Antelmo Sinclair NP). PRIMARY CARE PROVIDER: [facility] and Angela Valladares NP., from [place]. PRIMARY DIAGNOSES: 1. Biliary colic. 2. Status post laparoscopic cholecystectomy. 3. Status post endoscopic retrograde cholangiopancreatography. 4. Post endoscopic retrograde cholangiopancreatography pancreatitis. SECONDARY DIAGNOSES: 1. Anxiety and depression. 2. On hormonal therapy. CONSULTATIONS WHILE IN THE HOSPITAL: Dr. Yomi Mora with Gastroenterology, and Dr. June Mejia with General Surgery. PROCEDURES WHILE IN THE HOSPITAL: 1. Status post laparoscopic cholecystectomy by Dr. David Woods on 02/22/17. 2. Status post ERCP with Dr. Yomi Mora on 02/23/17. STUDIES WHILE IN THE HOSPITAL: Gallbladder ultrasound on 02/20/17. Radiologist 's Impression: Sonographic findings are compatible with nonobstructive cholelithiasis and gallbladder sludge, possibly with the addition of adenomyomatosis. There is echogenic debris in the mildly dilated common bile duct. There is a strong clinical suspicion for obstructive cholelithiasis, further characterization could be made with a HIDA scan. DISCHARGE MEDICATIONS: [place] Medications: 1. Acetaminophen 500 mg oral every 4 hours as needed for pain. 2. Ibuprofen 600 mg oral every 6 hours as needed for pain. Continued Home Medications: 1. Xanax 0.5 mg oral daily as needed for anxiety. 2. Zoloft 100 mg oral daily. 3. Testosterone. HISTORY OF PRESENT ILLNESS/HOSPITAL COURSE: Mr. Thomas is a 21-year-old female, transitioning to male, who prefers to be called [facility]. The patient presented to the emergency room with complaints of epigastric discomfort. He reported having this pain before. He reports having this pain approximately every 3 months where he gets an episode of epigastric pain that feels like a band, comes in waves, to the upper part of his stomach, usually gets better on its own. He has not found any foods that he finds to be associated with this discomfort, but he had found that it had occasionally happened after eating and he was trying to cut out fatty foods, but that did seem to be alleviating the discomfort. On this episode, the patient awoke with epigastric discomfort and had nausea. It was his typical pain, but when the pain continued, the patient decided he should present to the emergency room for further evaluation of his symptoms. While in the emergency room, the patient had a gallbladder ultrasound that was suggestive of biliary colic. He had labs that were remarkable for an elevated white blood cell count of 12.5. His total bilirubin was 1, AST 295, ALT 275, alk phos 123, CRP 10, lipase was negative, beta hCG was negative. Urinalysis was 3+ leukocyte esterase, 3+ wbc's, and 1+ protein. Hospitalist were asked to evaluate the patient for admission. During the patient's hospitalization he was seen in consultation by GI and general surgery. It was felt that the patient needed a cholecystectomy. He was taken to the operating room for a laparoscopic cholecystectomy by Dr. David Woods on 02/22/17. The patient was then taken for ERCP by Dr. Yomi Mora. Post procedure, the patient developed a post ERCP pancreatitis with elevated lipase, although his transaminitis was improving. The patient also developed leukocytosis. It was suspected secondary to his pancreatitis. The patient was placed n.p.o. and given IV fluids. His pain resolved and he was feeling better. He was initially started on clear liquids and then was advanced to a low fat diet. The patient has been ambulating in the hallway requiring minimal pain medication. It was felt that the patient was ready for discharge home today. Mr. Thomas is stable for discharge to home today. Vital signs are as follows: Temperature 98.2, heart rate 92, respiratory rate 18, O2 sat 100% on room air, and blood pressure 131/70. DISCHARGE PLAN: Mr. Thomas will be discharged to home. Activity as tolerated. He should be on a low fat, light diet. As far as the patient's post- lap cholecystectomy care, he is encouraged to take Motrin and Tylenol for his pain. He should be seen in follow up by Dr. Woods in the next 7 to 10 days. He has been asked to call Dr. Woods's office on Wednesday to set up a followup appointment. The patient was asked to shower, avoid sit down baths. Due to the patient's persistent leukocytosis, he has been asked to get labs drawn next week on Wednesday. The patient has been asked to return to the emergency room for any chest pain or shortness of breath. This is a summarized report of a complex medical history and hospital stay. For further details please see the entire medical record. TIME SPENT: Time for this discharge was approximately 50 minutes, greater than half of that was spent with the patient and his mother discussing discharge plans and instructions. CONDITION ON DISCHARGE: Stable. ANTELMO SINCLAIR, [place] [id number]/CPS #: [id number] EDIS
== END 2017-02-26 18:40 | disposition home or self-care (01) | DRG 263 ==
LOC: ED 05:30 → MED 11:26 → OBSVTOIN 02-22 12:00
PROVIDERS: ADMIT Hospitalist; ATTEND Internal Medicine
PROC: BF10YZZ Fluoroscopy of Bile Ducts using Other Contrast (ICD-10-PCS; 2017-02-22)
PROC: 0F798ZZ Dilation of Common Bile Duct, Via Natural or Artificial Opening Endoscopic (ICD-10-PCS; 2017-02-22)
PROC: 3E0234Z Introduction of Serum, Toxoid and Vaccine into Muscle, Percutaneous Approach (ICD-10-PCS; 2017-02-22)
PROC: 0FT44ZZ Resection of Gallbladder, Percutaneous Endoscopic Approach (ICD-10-PCS; principal; 2017-02-22 16:00)
DX: K80.42 Calculus of bile duct with acute cholecystitis without obstruction (principal); K85.10 Biliary acute pancreatitis without necrosis or infection; Z88.0 Allergy status to penicillin; Z88.1 Allergy status to other antibiotic agents; Z88.2 Allergy status to sulfonamides; Z72.89 Other problems related to lifestyle; F12.90 Cannabis use, unspecified, uncomplicated; F41.9 Anxiety disorder, unspecified; F32.9 Major depressive disorder, single episode, unspecified; Z83.79 Family history of other diseases of the digestive system; F17.210 Nicotine dependence, cigarettes, uncomplicated; E86.0 Dehydration; E66.3 Overweight; G43.909 Migraine, unspecified, not intractable, without status migrainosus; Z23 Encounter for immunization; Z68.34 Body mass index [BMI] 34.0-34.9, adult
CPT/HCPCS: 36415; 74300; 74330; 76705; 80053; 80074; 80076; 81003; 81015; 82248; 83605; 83690; 84702; 85025; 85027; 85610; 86140; 87086; 88304; 90686; 94760; A9270-GY; C1769; G0378; J0330; J1100; J1170; J1610; J1885; J1956; J2001; J2250; J2270; J2405; J2704; J3010; J3370